=== PATIENT | male | born 1950 | race Caucasian/White ===

== ENCOUNTER 2019-07-18 12:35 | Inpatient (IN) | payer MEDICARE, MEDICAID ==
[~2019-07-18] VITALS: Ht 167.6 cm; Wt 91.7 kg
[~2019-07-18 12:35] MED LIST: AMIO200T33 PO; ASPI-231 PO; CARV12.544 PO; INSLANTI SC; INSU70IN9 SC; LISI10TA6 PO; LOVA20TA4 PO
[2019-07-18] MEDS ORDERED: SODIUM CHLORIDE 0.9% 500 ML IV ONE (12:51)
[2019-07-18] MEDS ORDERED: MORPHINE SULFATE 4 MG/ML SYR/VIAL IV ONE (13:00)
[2019-07-18] MEDS ORDERED: ONDANSETRON HCL 4 MG/2 ML VIAL IV ONE (13:00)
[2019-07-18 13:47] LABS: Basophils # (auto) 0 10 ^3/uL (0-0.2); Basophils % (auto) 0.9 % (0.0-2.0); Eosinophils # (auto) 0.1 10 ^3/uL (0-0.8); Eosinophils % (auto) 1.6 % (0.0-7.0); Hematocrit 35.6 % (41.0-53.0); Hemoglobin 11.8 g/dL (13.5-17.5); Lymphocytes % (auto) 19.8 % (10.0-50.0); Mean Corpuscular Hemoglobin 31.7 pg (28.0-32.0); Monocytes # (auto) 0.4 10 ^3/uL (0-1.3); Monocytes % (auto) 7.1 % (0.0-12.0); Neutrophils # (auto) 3.7 10 ^3/uL (1.6-8.6); Neutrophils % (auto) 70.6 % (37.0-80.0); Platelet Count (auto) 215 10^3/uL (140-450); Red Blood Cells 3.71 10^6/uL (4.5-5.90); Red Cell Distribution Width 13.9 % (11.8-14.3); White Blood Cell 5.2 10^3/uL (4.4-10.8)
[2019-07-18 13:59] LABS: INR 1.06 (0.9-1.15); Partial Thromboplastin Time 29.9 sec (23.64-32.05)
[2019-07-18 14:01] LABS: Albumin 3.5 g/dL (3.4-5.0); Calcium 8.6 mg/dL (8.5-10.1)
[2019-07-18 14:04] LABS: BUN/Creatinine Ratio 13.8
[2019-07-18 14:06] LABS: Bilirubin, Total 0.4 mg/dL (0.2-1.0); Total Protein 7.3 g/dL (6.4-8.2)
[2019-07-18] MEDS ORDERED: NITROGLYCERIN 0.4 MG SL TAB SL PRN (16:45)
[2019-07-18] MEDS ORDERED: MORPHINE SULF INJ 2 MG/ML SYRINGE 1ML IV PRN (16:45)
[2019-07-18] MEDS ORDERED: DEXTROSE (50%) 50ML SYRG IV PRN (16:45)
[2019-07-18] MEDS: ACCU-CHEK COMFORT CURVE STRIP VI SCH ×2 (17:22→21:22)
[2019-07-18] MEDS: InsuLIN REG 1unit/0.01ml Soln (100units/ml) SC SCH ×2 (17:25→21:24)
[2019-07-18] MEDS: SODIUM CHLORIDE 0.9% 1,000 ML IV SCH (17:27)
--- NOTE | 2019-07-18 20:05 | NUR ---
arrival note arrival via wheelchair. pt A&Ox4. respirations even and nonlabored on 2Lnc.
[2019-07-18 20:06] VITALS: BP 116/72
[2019-07-18] MEDS: CLINDAMYCIN 300MG IV 50 ML IV SCH (21:19)
[2019-07-18] MEDS: AMIODARONE HCL 200 MG TAB PO SCH (21:20)
[2019-07-18] MEDS: CARVEDILOL 12.5 MG TAB PO SCH (21:21)
[2019-07-18] MEDS: INSULIN LANTUS (GLARGINE) 1 /0.01ml (100units/ml) SC SCH (21:23)
[2019-07-18 22:00] VITALS: BP 116/72
--- NOTE | 2019-07-18 22:10 | NUR ---
pain c/o pain at left foot 10/18. medication will be administered.
[2019-07-18] MEDS: MORPHINE SULF INJ 2 MG/ML SYRINGE 1ML IV PRN (22:15)
--- NOTE | 2019-07-18 22:45 | NUR ---
hospitalist Spoke with hospitalyoel Batista regarding pt request for medication for constipation, as well as a sleep aid. New telephone orders received: Colace 100mg po BID PRN, Restoril 15mg po hs PRN orders read back and verified
[2019-07-18] MEDS ORDERED: DOCUSATE SOD 100 MG CAP PO PRN (23:15)
[2019-07-19] MEDS: SODIUM CHLORIDE 0.9% 1,000 ML IV SCH ×3 (03:07→14:00)
--- NOTE | 2019-07-19 03:30 | NUR ---
pain c/o pain at left foot 10/18. medication will be administered.
[2019-07-19] MEDS: MORPHINE SULF INJ 2 MG/ML SYRINGE 1ML IV PRN ×2 (03:34→11:26)
[2019-07-19 05:18] VITALS: BP 136/76
[2019-07-19] MEDS: InsuLIN REG 1unit/0.01ml Soln (100units/ml) SC SCH ×4 (06:31→21:41)
[2019-07-19] MEDS: ACCU-CHEK COMFORT CURVE STRIP VI SCH ×4 (06:31→21:49)
[2019-07-19] MEDS: CLINDAMYCIN 300MG IV 50 ML IV SCH ×3 (06:32→21:39)
--- NOTE | 2019-07-19 07:20 | NUR ---
closing note pt resting in semi fowlers position with eyes closed. no s/s of pain or distress at this time. respirations are even and nonlabored on 2Lnc. bed in low locked positon, call light within reach.
--- NOTE | 2019-07-19 07:40 | NUR ---
Opening Shift Note Assumed care of patient, awake and alert. No S/S of distress/SOB or pain. Instructed on POC and to call for assist PRN, will continue to monitor for changes Q1hr and PRN. Bed locked in lowest position with two side rails up and call light in reach.
[2019-07-19 08:00] VITALS: BP 132/74
[2019-07-19] MEDS: CARVEDILOL 12.5 MG TAB PO SCH ×2 (08:29→17:48)
[2019-07-19] MEDS: cefTRIAXone 1GM/50ML D5W 50 ML IV SCH (08:29)
[2019-07-19 08:40] VITALS: BP 132/74
[2019-07-19] MEDS: AMIODARONE HCL 200 MG TAB PO SCH ×2 (09:53→21:39)
--- NOTE | 2019-07-19 11:30 | NUR ---
WOUND CARE NOTE: IN TO SEE PATIENT AT THIS TIME PER WOUND CARE CONSULT REQUEST. [facility] OF LEFT FOOT PAIN, DFU. PATIENT HAS CURRENT TRINIDAD SCORE OF 19. WOUND PHOTO TAKEN AT TIME OF ADMIT, BY BEDSIDE NURSE. PATIENT STATES THAT HE WAS SENT TO THE ER BY [employer] PROFESSOR, DR. EVERETT. DR. EVERETT HAS ORDERED FOR MRI TO THE FOOT. HE IS NOTED TO HAVE A 2 X 2.5 CM BLACK ESCHAR DFU TO LEFT # 1 TOE. NO OPEN OR DRAINING AREAS NOTED. WOUND BED IS COVERED WITH 100 PERCENT BLACK ESCHAR. IRRIGATED WOUND WITH BETADINE. COVERED WITH TELFA, WRAPPED FOOT WITH KERLIX. ELEVATED FOOT UP ONTO PILLOWS FOR EDEMA CONTROL. RECOMMEND: EOD/PRN DRESSING CHANGE TO LEFT FOOT WOUND, DIETARY CONSULT, ELEVATION OF LEFT FOOT FOR EDEMA CONTROL, SKIN/WOUND CARE PLAN, CONTINUED MONITORING BY WOUND CARE TEAM. Addendum: 07/19/19 at 1758 by Maria Esther Ribeiro RN Amended: Links added.
[2019-07-19 12:40] VITALS: BP 110/61
[2019-07-19 17:00] VITALS: BP 143/84
--- NOTE | 2019-07-19 20:00 | NUR ---
Opening Shift Note Assumed care of patient, awake and alert. No S/S of distress/SOB or pain. Instructed on POC and to call for assist PRN, will continue to monitor for changes Q1hr and PRN. Patient's dressing undone at this time. Dressing reapplied. Patient states it comes off when using the urinal. will continue to monitor.
[2019-07-19] MEDS: INSULIN LANTUS (GLARGINE) 1 /0.01ml (100units/ml) SC SCH (21:42)
[2019-07-19 22:00] VITALS: BP 117/65
[2019-07-20] VITALS (7 sets, daily range): BP systolic 106–152; BP diastolic 44–76
[2019-07-20] MEDS: SODIUM CHLORIDE 0.9% 1,000 ML IV SCH ×2 (05:54→23:20)
[2019-07-20] MEDS: CLINDAMYCIN 300MG IV 50 ML IV SCH ×3 (05:54→21:35)
[2019-07-20] MEDS: MORPHINE SULF INJ 2 MG/ML SYRINGE 1ML IV PRN (05:54)
--- NOTE | 2019-07-20 06:00 | NUR ---
DRESSING UNDONE. DRESSING REAPPLIED TO FOOT. EDUCATED PATIENT ON NECESSITY OF BEING CAREFUL WITH DRESSING. PATIENT VERBALIZED UNDERSTANDING. WILL CONTINUE TO MONITOR.
[2019-07-20 06:05] LABS: Basophils # (auto) 0 10 ^3/uL (0-0.2); Eosinophils # (auto) 0.2 10 ^3/uL (0-0.8); Eosinophils % (auto) 4.1 % (0.0-7.0); Hematocrit 34.5 % (41.0-53.0); Hemoglobin 11.4 g/dL (13.5-17.5); Lymphocytes % (auto) 20.4 % (10.0-50.0); Mean Corpuscular Hemoglobin 31.3 pg (28.0-32.0); Mean Corpuscular Hgb Conc. 32.9 g/dL (32.0-36.0); Mean Corpuscular Volume 95.1 fL (80.0-100.0); Monocytes # (auto) 0.4 10 ^3/uL (0-1.3); Monocytes % (auto) 8.7 % (0.0-12.0); Neutrophils # (auto) 3.3 10 ^3/uL (1.6-8.6); Neutrophils % (auto) 65.8 % (37.0-80.0); Nucleated Red Blood Cells % 0.1 %; Platelet Count (auto) 184 10^3/uL (140-450); Red Blood Cells 3.63 10^6/uL (4.5-5.90); Red Cell Distribution Width 14.1 % (11.8-14.3); White Blood Cell 4.9 10^3/uL (4.4-10.8)
[2019-07-20 06:16] LABS: Calcium 8.5 mg/dL (8.5-10.1); Potassium 4.8 mmol/L (3.5-5.1)
[2019-07-20] MEDS: ACCU-CHEK COMFORT CURVE STRIP VI SCH ×4 (06:30→21:44)
[2019-07-20] MEDS: InsuLIN REG 1unit/0.01ml Soln (100units/ml) SC SCH ×4 (06:30→21:43)
[2019-07-20] MEDS: cefTRIAXone 1GM/50ML D5W 50 ML IV SCH (09:29)
[2019-07-20] MEDS: AMIODARONE HCL 200 MG TAB PO SCH ×2 (09:30→21:35)
[2019-07-20] MEDS: CARVEDILOL 12.5 MG TAB PO SCH ×2 (09:32→18:00)
--- NOTE | 2019-07-20 13:03 | NUR ---
DR. EVERETT AT BEDSIDE TO DISCUSS PLAN OF CARE FOR PATIENT, ORDER RECEIVED, WILL DOCUMENT AND CARRY OUT
[2019-07-20] MEDS ORDERED: ADENOSINE 74 MG in GIVE UN-DILUTED 0 ML IV STA (15:22)
--- NOTE | 2019-07-20 15:27 | NUR ---
PICC line placement Patient educated on need for PICC line placement. All risks and benefits explained and all questions and concerns addressed prior to procedure. Noted past medical history and allergies with no contraindications. INR and Plt counts within acceptable range. 4 fr PICC line inserted via right basilic vein using [employer] US and Tip Location System. Sterile technique with maximum barrier precautions utilized. Blood return obtained from lumen and flushed easily with NS using proper technique. PICC secured with Stat-lock; biodisc and occlusive dressing applied. Stat portable chest x-ray obtained for PICC tip placement. *Baseline Arm Circumference 30 cm. Internal length 43 cm. External length. PICC lot # [id number]
[2019-07-20] MEDS ORDERED: LIDOCAINE 1% (LOCAL ANESTH.) PF 5ml SDV ID ONE (15:30)
--- NOTE | 2019-07-20 16:00 | NUR ---
Okay to use PICC line Xray completed. Okay to use PICC line. Primary RN notified.
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
[2019-07-20] MEDS: SODIUM CHLOR 0.9% PF (SALINE LOCK) 10ML VIAL/SYR IV SCH (21:43)
[2019-07-20] MEDS: INSULIN LANTUS (GLARGINE) 1 /0.01ml (100units/ml) SC SCH (21:44)
--- NOTE | 2019-07-20 21:45 | NUR ---
DRESSING CHANGED Wound has been clean per wound care order and new dressing has been placed. Patient tolerated dressing change well.
--- NOTE | 2019-07-21 01:35 | NUR ---
PAIN LEVEL ASSESSMENT The patient states that he is experiencing 7/10 left foot pain and requested pain medication. Will treat with PRN morphine and will reassess the patient's pain.
[2019-07-21] MEDS: MORPHINE SULF INJ 2 MG/ML SYRINGE 1ML IV PRN ×2 (01:40→20:10)
--- NOTE | 2019-07-21 02:45 | NUR ---
PAIN REASSESSMENT The patient's pain has improved to 0/10. The patient is resting comfortably in bed.
[2019-07-21 05:00] VITALS: BP 121/64
[2019-07-21] MEDS: CLINDAMYCIN 300MG IV 50 ML IV SCH ×3 (06:26→22:00)
--- NOTE | 2019-07-21 06:45 | NUR ---
PICC LINE REMOVED The patient pulled out approximately 80% of his RUE PICC LINE. The patient stated that he felt uncomfortable due the to having "too much dressing covering the PICC line". RN removed the rest of the PICC line and placed a bandage over the site. Patient tolerated it well. Charge Nurse Bennett has been notified. Will endorse to day shift.
--- NOTE | 2019-07-21 06:55 | NUR ---
IV insertion IV access obtained, via clean sterile technique by inserting 22 gauge catheter at left hand after 1 attempt(s). IV secured properly. No trauma to site. Patient tolerated well.
[2019-07-21 08:00] VITALS: BP 142/81
[2019-07-21 09:00] VITALS: BP 142/81
[2019-07-21] MEDS: SODIUM CHLOR 0.9% PF (SALINE LOCK) 10ML VIAL/SYR IV SCH ×2 (09:15→22:00)
[2019-07-21] MEDS: CARVEDILOL 12.5 MG TAB PO SCH ×2 (09:15→18:43)
[2019-07-21] MEDS: cefTRIAXone 1GM/50ML D5W 50 ML IV SCH (09:15)
[2019-07-21] MEDS: AMIODARONE HCL 200 MG TAB PO SCH ×2 (09:15→22:00)
[2019-07-21 10:07] LABS: Calcium 8.8 mg/dL (8.5-10.1); Potassium 4.7 mmol/L (3.5-5.1)
[2019-07-21 10:09] LABS: BUN/Creatinine Ratio 14.9
[2019-07-21] MEDS: SODIUM CHLORIDE 0.9% 1,000 ML IV SCH (11:53)
[2019-07-21] MEDS: ACCU-CHEK COMFORT CURVE STRIP VI SCH ×4 (11:58→22:00)
[2019-07-21] MEDS: InsuLIN REG 1unit/0.01ml Soln (100units/ml) SC SCH ×4 (12:00→22:00)
[2019-07-21 13:00] VITALS: BP 145/85
--- NOTE | 2019-07-21 14:20 | NUR ---
Patient pulled out his IV to the left hand. Started IV 20g to the right upper arm.
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
--- NOTE | 2019-07-21 16:27 | NUR ---
Assessment Patient is a 68-year-old male who is alert and oriented. Prior to admission patient lived home with family and functioned independently. Per patient he does not have any DME now.Advised patient there is a social service consult for SNF placement for IV abx for 4 weeks. Patient requested [facility]. Informed patient clinical information will be faxed to facility. Informed patient he has the right to participate in all discharge planning. Patient verbalized understanding and agreed to discharge plan. Per Roberta with [facility] they do not have male available at this time. Informed patient. Per Patient he would like to go to [facility] [phone]. Informed patient clinical information will be faxed to [facility]. Per Sharmila with [facility] patient has been accepted and they would assign room once they receive COVID test results and IV abx. Informed NEVIN Wallace. Addendum: 07/21/19 at 1641 by ALEXA PIZARRO Amended: Links added.
[2019-07-21 16:34] VITALS: BP 149/89
--- NOTE | 2019-07-21 17:39 | NUR ---
Dressing changed to left great toe per doctor orders.
--- NOTE | 2019-07-21 19:35 | NUR ---
Opening Shift Note Assumed care of patient, awake and alert. No S/S of distress/SOB or pain. Bed is locked in lowest position with call light within reach. Instructed on POC and to call for assist PRN, will continue to monitor for changes Q1hr and PRN.
[2019-07-21 22:00] VITALS: BP 130/64
[2019-07-21] MEDS: INSULIN LANTUS (GLARGINE) 1 /0.01ml (100units/ml) SC SCH (22:00)
[2019-07-21] MEDS: ACETYLCYSTEINE ORAL for CIN 20%(200MG/ML) 4ML PO SCH (22:00)
[2019-07-22] MEDS: SODIUM CHLORIDE 0.9% 1,000 ML IV SCH ×2 (01:38→15:49)
[2019-07-22] MEDS: MORPHINE SULF INJ 2 MG/ML SYRINGE 1ML IV PRN (02:18)
[2019-07-22 05:00] VITALS: BP 135/71
[2019-07-22] MEDS: CLINDAMYCIN 300MG IV 50 ML IV SCH ×3 (06:00→22:34)
[2019-07-22] MEDS: ACCU-CHEK COMFORT CURVE STRIP VI SCH ×4 (07:00→22:00)
[2019-07-22] MEDS: InsuLIN REG 1unit/0.01ml Soln (100units/ml) SC SCH ×4 (07:00→23:19)
--- NOTE | 2019-07-22 07:30 | NUR ---
Opening Shift Note Assuming care of patient at this time. Patient is awake and alert. Patient denies pain. Patient shows no signs or symptoms of distress or shortness of breath. Bed is locked and lowered with side rails up x2. Instructed patient on the plan of care for today and to call for assistance as needed. Call light within reach. Will continue to round hourly and as needed.
[2019-07-22] MEDS: CARVEDILOL 12.5 MG TAB PO SCH ×2 (08:35→18:00)
[2019-07-22] MEDS: AMIODARONE HCL 200 MG TAB PO SCH ×2 (08:36→22:00)
[2019-07-22] MEDS: cefTRIAXone 1GM/50ML D5W 50 ML IV SCH (08:36)
[2019-07-22 09:02] VITALS: BP 130/58
[2019-07-22] MEDS: SODIUM CHLOR 0.9% PF (SALINE LOCK) 10ML VIAL/SYR IV SCH ×2 (10:00→22:10)
[2019-07-22] MEDS: ACETYLCYSTEINE ORAL for CIN 20%(200MG/ML) 4ML PO SCH ×2 (11:14→22:34)
[2019-07-22] MEDS: ACETAMINOPHEN 500 MG TAB PO PRN (11:22)
[2019-07-22 12:38] VITALS: BP 148/73
--- NOTE | 2019-07-22 14:53 | NUR ---
Nutrition Assessment Note please see attached link for complete assessment [employer] needs ABW [id number] kcals (23-25 kcal/kgBW), Est Protein needs: 77-92 gms/day (1.0-1.2 gm/kgBW r/t wounds). Will continue to monitor and reassess prn. Addendum: 07/22/19 at [address] Amended: Links added.
[2019-07-22 16:59] VITALS: BP 120/54
--- NOTE | 2019-07-22 19:26 | NUR ---
Closing Shift Note Patient resting in bed. No distress noted. Report given. Will endorse care to the mushroom growth media mixer RN.
[2019-07-22 22:00] VITALS: BP 133/66
--- NOTE | 2019-07-22 22:03 | NUR ---
HOSPITALIST PAGED PATIENT REQUESTING LAXATIVE.
--- NOTE | 2019-07-22 22:05 | NUR ---
HOSPITALIST RETURNS CALL SPOKE TO REGARDING PATIENT REQUEST FOR LAXATIVE. NEW ORDERS RECEIVED FOR LACTULOSE 30ML PO DAILY PRN. ORDERS READ BACK AND VERIFIED.
[2019-07-22] MEDS: TEMAZEPAM 15 MG CAP PO PRN (22:34)
--- NOTE | 2019-07-22 22:40 | NUR ---
PATIENT REFUSING LACTULOSE AT THIS TIME. PATIENT STATES HE WANTS TO TAKE IT IN THE MORNING.
[2019-07-22] MEDS: INSULIN LANTUS (GLARGINE) 1 /0.01ml (100units/ml) SC SCH (23:19)
--- NOTE | 2019-07-23 03:10 | NUR ---
CARE ENDORSED TO SIRENA ROONEY. PATIENT RESTING IN BED WITH NO S/S OF DISTRESS NOTED.
--- NOTE | 2019-07-23 03:15 | NUR ---
0310. RECEIVED PATIENT FROM BARNEY ROONEY.
[2019-07-23] MEDS: SODIUM CHLORIDE 0.9% 1,000 ML IV SCH (04:10)
[2019-07-23 05:00] VITALS: BP 141/73
[2019-07-23] MEDS: CLINDAMYCIN 300MG IV 50 ML IV SCH ×3 (06:09→21:55)
[2019-07-23 06:16] LABS: BUN/Creatinine Ratio 18.8; Calcium 8.6 mg/dL (8.5-10.1); Potassium 4.5 mmol/L (3.5-5.1)
[2019-07-23] MEDS: ACCU-CHEK COMFORT CURVE STRIP VI SCH ×4 (06:39→21:57)
[2019-07-23] MEDS: InsuLIN REG 1unit/0.01ml Soln (100units/ml) SC SCH ×4 (06:39→22:43)
[2019-07-23] MEDS: CARVEDILOL 12.5 MG TAB PO SCH ×2 (08:47→18:24)
[2019-07-23] MEDS: AMIODARONE HCL 200 MG TAB PO SCH ×2 (08:48→21:56)
[2019-07-23 09:00] VITALS: BP 134/80
[2019-07-23] MEDS: ACETYLCYSTEINE ORAL for CIN 20%(200MG/ML) 4ML PO SCH (09:01)
[2019-07-23] MEDS: LACTULOSE 20Gm/30ML SOLN PO PRN (09:01)
[2019-07-23] MEDS: SOD CHL 0.45% 1,000 ML IV SCH ×2 (09:03→21:55)
[2019-07-23] MEDS: cefTRIAXone 1GM/50ML D5W 50 ML IV SCH (09:04)
[2019-07-23] MEDS: SODIUM CHLOR 0.9% PF (SALINE LOCK) 10ML VIAL/SYR IV SCH ×2 (09:14→21:55)
--- NOTE | 2019-07-23 12:00 | NUR ---
IV removal by patient Patient's IV is laying on the bed at this time. When asked what happened, patient states, "I don't know." Pressure dressing applied to site. Will insert new IV.
--- NOTE | 2019-07-23 12:56 | NUR ---
Wound Care Wound care done at this time per doctor's orders. No distress noted. Patient tolerated well.
--- NOTE | 2019-07-23 12:57 | NUR ---
IV insertion IV access obtained, via clean sterile technique by inserting 22 gauge catheter at right hand. IV secured properly. No trauma to site. Patient tolerated well.
[2019-07-23 13:00] VITALS: BP 136/71
[2019-07-23 17:00] VITALS: BP 142/62
--- NOTE | 2019-07-23 19:19 | NUR ---
Closing Shift Note Patient resting in bed. No distress noted. Report given. Will endorse care to the rn shift mgr RN.
--- NOTE | 2019-07-23 19:30 | NUR ---
OPENING NOTE Received report from day shift RN. Patient is A&O X's 4 with no s/s of distress and denies any pain. Educated patient on POC and to use call light when in need of assistance. Patient verbalized understanding. Bed is in lowest/locked position with side rails up X's 2 and call light is within reach of patient. Patient will be NPO after midnight for possible procedure in the morning. Patient aware. Will continue care.
[2019-07-23] MEDS: TEMAZEPAM 15 MG CAP PO PRN (21:56)
[2019-07-23] MEDS: ACETAMINOPHEN 500 MG TAB PO PRN (21:56)
--- NOTE | 2019-07-23 21:56 | NUR ---
PAIN ASSESSMENT Patient c/o pain to left foot rating at a 7. Patient requesting Tylenol and said that he does not like the side effects of morphine. Will continue care.
[2019-07-23 22:00] VITALS: BP 135/69
[2019-07-23] MEDS: INSULIN LANTUS (GLARGINE) 1 /0.01ml (100units/ml) SC SCH (22:43)
--- NOTE | 2019-07-24 | NUR ---
PATIENT NPO Fluids and food removed from bedside. Will continue care.
[2019-07-24] MEDS: MORPHINE SULF INJ 2 MG/ML SYRINGE 1ML IV PRN (03:24)
--- NOTE | 2019-07-24 03:54 | NUR ---
PAIN REASSESSMENT Patient resting in bed with no s/s of discomfort. Will continue care.
[2019-07-24 05:00] VITALS: BP 119/63
[2019-07-24] MEDS: CLINDAMYCIN 300MG IV 50 ML IV SCH ×3 (06:19→21:44)
[2019-07-24] MEDS: InsuLIN REG 1unit/0.01ml Soln (100units/ml) SC SCH ×4 (06:19→21:51)
[2019-07-24] MEDS: ACCU-CHEK COMFORT CURVE STRIP VI SCH ×4 (06:19→21:45)
[2019-07-24 06:29] LABS: Basophils # (auto) 0.1 10 ^3/uL (0-0.2); Eosinophils # (auto) 0.2 10 ^3/uL (0-0.8); Eosinophils % (auto) 2.5 % (0.0-7.0); Lymphocytes # (auto) 1.2 10 ^3/uL (0.4-5.4); Lymphocytes % (auto) 19.1 % (10.0-50.0); Mean Corpuscular Hemoglobin 31.7 pg (28.0-32.0); Mean Corpuscular Hgb Conc. 33.3 g/dL (32.0-36.0); Mean Corpuscular Volume 95.3 fL (80.0-100.0); Monocytes # (auto) 0.8 10 ^3/uL (0-1.3); Monocytes % (auto) 12.4 % (0.0-12.0); Nucleated Red Blood Cells % 0.1 %; Platelet Count (auto) 180 10^3/uL (140-450); Red Blood Cells 3.78 10^6/uL (4.5-5.90); Red Cell Distribution Width 13.9 % (11.8-14.3); White Blood Cell 6.1 10^3/uL (4.4-10.8)
[2019-07-24 06:41] LABS: INR 1.05 (0.9-1.15); Partial Thromboplastin Time 32.6 sec (23.64-32.05)
[2019-07-24 06:53] LABS: Calcium 8.7 mg/dL (8.5-10.1); Potassium 4.3 mmol/L (3.5-5.1)
[2019-07-24 06:55] LABS: BUN/Creatinine Ratio 17.3
[2019-07-24 09:00] VITALS: BP 120/64
[2019-07-24] MEDS: cefTRIAXone 1GM/50ML D5W 50 ML IV SCH (10:47)
[2019-07-24] MEDS: SODIUM CHLOR 0.9% PF (SALINE LOCK) 10ML VIAL/SYR IV SCH ×3 (10:49→21:45)
[2019-07-24] MEDS: AMIODARONE HCL 200 MG TAB PO SCH ×2 (10:49→21:44)
[2019-07-24] MEDS: CARVEDILOL 12.5 MG TAB PO SCH ×2 (10:49→18:00)
--- NOTE | 2019-07-24 12:30 | NUR ---
Off unit Patient taken down to analytical laboratory technician for procedure.
[2019-07-24] MEDS: SOD CHL 0.45% 1,000 ML IV SCH (12:34)
[2019-07-24] MEDS ORDERED: ANGIOMAX 250 MG VIAL IV ONE (12:48)
[2019-07-24] MEDS ORDERED: LIDOCAINE 2%HCL (LOCAL ANESTH.) INJ 20ML MDV ONE (12:49)
[2019-07-24] MEDS ORDERED: MIDAZOLAM HCL 1MG/1ML-2 ML VIAL ONE (12:49)
[2019-07-24] MEDS ORDERED: fentaNYL CITRATE 100 MCG/2 ML VL ONE (12:49)
[2019-07-24] MEDS ORDERED: SODIUM CHL 0.9% 50 ML ONE (12:49)
[2019-07-24 13:00] VITALS: BP 117/67
[2019-07-24] MEDS ORDERED: ASPirin 325 MG TAB ONE (13:31)
--- NOTE | 2019-07-24 14:42 | NUR ---
Patient back on unit Patient back from procedure in cat lab. Patient is stable, no s/s of distress noted. Incision site is clean dry and intact. Vitals are B/p 111/55, HR 51, oxygen saturation is 94% on room air, temperature is 97.7, and respirations are 18 even and unlabored. I will continue to monitor q1hr and PRN.
[2019-07-24 14:50] VITALS: BP 111/55
[2019-07-24] MEDS ORDERED: LIDOCAINE 1% (LOCAL ANESTH.) PF 5ml SDV ID ONE (15:45)
--- NOTE | 2019-07-24 15:49 | NUR ---
PICC line replacement Patient educated on need for PICC line replacement. All risks and benefits explained and all questions and concerns addressed prior to procedure. Noted past medical history and allergies with no contraindications. INR and Plt counts within acceptable range. 4 fr PICC line inserted via right basilic vein using [employer]'s [employer] US and Tip Location System. Sterile technique with maximum barrier precautions utilized. Blood return obtained from lumen and flushed easily with NS using proper technique. PICC secured with Stat-lock; biodisc and occlusive dressing applied. Stat portable chest x-ray obtained for PICC tip placement. *Baseline Arm Circumference 30 cm. Internal length 43 cm. External length 0 cm. PICC lot #[id number]
--- NOTE | 2019-07-24 16:09 | NUR ---
Okay to use PICC line Xray completed and reviewed. Okay to use PICC line. Primary RN notified.
[2019-07-24 17:10] VITALS: BP 147/81
--- NOTE | 2019-07-24 19:39 | NUR ---
end of shift note endorsed care to NOC NEVIN gibson. No s/s of distress noted.
[2019-07-24] MEDS: TEMAZEPAM 15 MG CAP PO PRN (21:44)
[2019-07-24] MEDS: INSULIN LANTUS (GLARGINE) 1 /0.01ml (100units/ml) SC SCH (21:52)
--- NOTE | 2019-07-24 22:00 | NUR ---
PATIENT REMOVED IV Patient removed 22 G IV to right hand. Patient said it was bothering him and he did not need it anymore because he has the PICC line. Educated patient not to pull at any lines and the PICC line is necessary to keep in. Patient verbalized understanding and said he knows he needs the PICC line and wont touch it. gauze applied to right hand. catheter was fully intact. No trauma noted. Will continue care.
[2019-07-24 22:01] VITALS: BP 124/47
[2019-07-25] MEDS: MORPHINE SULF INJ 2 MG/ML SYRINGE 1ML IV PRN ×2 (02:10→22:30)
--- NOTE | 2019-07-25 02:40 | NUR ---
PAIN REASSESSMENT Patient resting in bed with no s/s of discomfort. Will continue care.
[2019-07-25 05:00] VITALS: BP 155/76
[2019-07-25] MEDS: CLINDAMYCIN 300MG IV 50 ML IV SCH ×3 (06:19→22:11)
[2019-07-25] MEDS: InsuLIN REG 1unit/0.01ml Soln (100units/ml) SC SCH ×4 (06:20→22:03)
[2019-07-25] MEDS: SOD CHL 0.45% 1,000 ML IV SCH ×2 (06:20→12:27)
[2019-07-25] MEDS: ACCU-CHEK COMFORT CURVE STRIP VI SCH ×4 (06:20→22:11)
[2019-07-25 06:43] LABS: BUN/Creatinine Ratio 19.2; Calcium 8.5 mg/dL (8.5-10.1); Potassium 4.8 mmol/L (3.5-5.1)
[2019-07-25 07:37] LABS: Urine Bacteria NONE SEEN /hpf (None Seen); Urine Blood Negative /uL (Negative); Urine Hyaline Cast FEW /lpf (0 - 2); Urine Specific Gravity 1.011 (1.001-1.035); Urine WBC <1 /hpf (0 - 3)
--- NOTE | 2019-07-25 07:45 | NUR ---
Opening shift note assumed care of patient from noc brian oh. Patient is AOX4 no s/s of distress noted. Bed is in lowest locked position, side rails up x2, and call light within reach. Updated patient on plan of care and patient verbalized understanding. I will continue to monitor q1hr and PRN.
[2019-07-25 09:05] VITALS: BP 150/70
[2019-07-25] MEDS: cefTRIAXone 1GM/50ML D5W 50 ML IV SCH (10:30)
[2019-07-25] MEDS: SODIUM CHLOR 0.9% PF (SALINE LOCK) 10ML VIAL/SYR IV SCH ×4 (10:31→22:11)
[2019-07-25] MEDS: AMIODARONE HCL 200 MG TAB PO SCH ×2 (10:32→22:07)
[2019-07-25] MEDS: CARVEDILOL 12.5 MG TAB PO SCH ×2 (10:32→18:59)
[2019-07-25] MEDS ORDERED: amLODIPine BESYLATE 5 MG TAB PO ONE (11:00)
--- NOTE | 2019-07-25 12:05 | NUR ---
physician rounding Dr. Garay at bedside. Updated him on patient statu, new orders received. Will follow through with MD orders.
[2019-07-25 12:51] VITALS: BP 135/78
[2019-07-25 17:16] VITALS: BP 137/68
--- NOTE | 2019-07-25 19:00 | NUR ---
Dressing change Dressing changed, patient tolerated procedure well. I will continue to monitor q1hr and PRN.
--- NOTE | 2019-07-25 19:36 | NUR ---
Closing shift note Endorsed care to NOC NEVIN Sanchez. No s/s of distress noted.
--- NOTE | 2019-07-25 19:52 | NUR ---
COVID SWAB Collected and walked down to lab
[2019-07-25 22:00] VITALS: BP 141/68
[2019-07-25] MEDS: INSULIN LANTUS (GLARGINE) 1 /0.01ml (100units/ml) SC SCH (22:04)
[2019-07-25] MEDS: TEMAZEPAM 15 MG CAP PO PRN (22:07)
--- NOTE | 2019-07-25 23:00 | NUR ---
PAIN REASSESSMENT Patient resting in bed. NO s/s of distress or discomfort is seen. Will continue care.
--- NOTE | 2019-07-26 | NUR ---
PATIENT NPO Patient aware. fluids and food removed from bedside.
--- NOTE | 2019-07-26 04:27 | NUR ---
PICC LINE REMOVED The patient pulled out all of the RUE PICC LINE. The patient stated that he "woke up and felt wet and couldn't find the PICC LINE." Patient reports that he thinks he accidently pulled it out because it was wrapped with his phone hotel maintenance technician. Gauze applied over site. No trauma noted. PICC Line was intact. sleeping bag filler notified.
--- NOTE | 2019-07-26 04:33 | NUR ---
IV insertion IV access obtained, via clean sterile technique by inserting 22 gauge catheter at right forearm after 1 attempt. IV secured properly. No trauma to site. Patient tolerated well. Signed: 07/26/19 at 0435 by KEMI MAO <Co-Signature Required> Co-Signed: 07/26/19 at 0435 by JULIA RIZZO RN RN
[2019-07-26 05:00] VITALS: BP 150/69
[2019-07-26] MEDS: MORPHINE SULF INJ 2 MG/ML SYRINGE 1ML IV PRN (05:01)
[2019-07-26] MEDS: CLINDAMYCIN 300MG IV 50 ML IV SCH ×3 (06:03→22:12)
[2019-07-26] MEDS: SOD CHL 0.45% 1,000 ML IV SCH (06:03)
[2019-07-26] MEDS: InsuLIN REG 1unit/0.01ml Soln (100units/ml) SC SCH ×4 (06:03→22:40)
[2019-07-26] MEDS: ACCU-CHEK COMFORT CURVE STRIP VI SCH ×4 (06:04→22:13)
--- NOTE | 2019-07-26 06:58 | NUR ---
PATIENT LEFT UNIT TO PRE OP PATIENT A&O X'S 4 WITH NO S/S OF DISTRESS AT THIS TIME.
[2019-07-26] MEDS ORDERED: ROPIVACAINE 0.5% (5MG/ML) 20ML AMPULE IJ ONE (07:01)
[2019-07-26] MEDS ORDERED: ceFAZolin 1GM VL ONE (07:01)
[2019-07-26] MEDS ORDERED: ceFAZolin 1GM/50ML 50 ML IV ONE (07:02)
--- NOTE | 2019-07-26 07:30 | NUR ---
Opening shift note Assumed care of patient from NINA Sanchez. Patient is currently off unit for a procedure.
[2019-07-26] MEDS ORDERED: SUCCINYLCHOLINE CHLORIDE 20 MG/ML 10ML VIAL IV ONE (07:32)
[2019-07-26] MEDS ORDERED: fentaNYL CITRATE 100 MCG/2 ML VL ONE (07:35)
[2019-07-26] MEDS ORDERED: MIDAZOLAM HCL 1MG/1ML-2 ML VIAL ONE (07:35)
[2019-07-26] MEDS ORDERED: PROPOFOL 10 MG/ML 20 ML IV ONE (07:36)
[2019-07-26] MEDS: CARVEDILOL 12.5 MG TAB PO SCH ×2 (08:00→16:58)
[2019-07-26] MEDS ORDERED: fentaNYL CITRATE 100 MCG/2 ML VL IV PRN (08:15)
[2019-07-26] MEDS ORDERED: hydrALAZINE HCL 20 MG/ML VL IV PRN (08:15)
[2019-07-26] MEDS ORDERED: ePHEDrine SULFATE 50 MG/ML AMP IV PRN (08:15)
[2019-07-26] MEDS ORDERED: ONDANSETRON HCL 4 MG/2 ML VIAL IV PRN (08:15)
--- NOTE | 2019-07-26 08:36 | NUR ---
PACU Report received. Received report from Sarah ROONEY.
[2019-07-26 08:45] VITALS: BP 142/75
--- NOTE | 2019-07-26 08:45 | NUR ---
Patient back on unit Patient brought back from procedure, patient is stable. Vitals upon arrival are 142/75, 62bpm, 95% on room air, 18 respiration rate, and temperature is 97.4. No signs and symptoms of distress noted, dressing is clean dry and intact. Educated patient to call for assistance when needed, educated patient on wound and dressing, patient verbalized understanding. Will continue to monitor q1hr and PRN.
[2019-07-26] MEDS: cefTRIAXone 1GM/50ML D5W 50 ML IV SCH (09:58)
[2019-07-26] MEDS: amLODIPine BESYLATE 5 MG TAB PO SCH (09:59)
[2019-07-26] MEDS: AMIODARONE HCL 200 MG TAB PO SCH ×2 (09:59→22:11)
[2019-07-26] MEDS: SODIUM CHLOR 0.9% PF (SALINE LOCK) 10ML VIAL/SYR IV SCH ×4 (09:59→22:00)
--- NOTE | 2019-07-26 11:43 | NUR ---
WOUND CARE NOTE: Wound care on to see patient for reevaluation of wound that are noted present on admission. Patient is resting in bed in Rm. 296B. Patient's eyes are closed and he's facing Rt side, respirations even and unlabored. Patient undergone amputation of L great toe this morning by Dr. Garay. His L foot has C/D/I post op dressing. No pressure injury noted. No further wound care monitoring as this is surgical wound, follow surgeon's dressing change order. RECOMMENDATION: Follow surgeon's dressing change order, continue with skin/wound plan of care. Addendum: 07/26/19 at 1613 by Erin Jha RN Amended: Links added.
[2019-07-26 13:00] VITALS: BP 134/68
--- NOTE | 2019-07-26 15:51 | NUR ---
Nutrition Followup Note Pt wt is 89.5 kg Pt was sleeping when rounded this morning. Pt is currently NPO status was cancelled, pt resumed [id number] diet today. Pt appetite is good aeb 100% PO intake. Pt with no distress Per RN doc. Will continue to closely monitor pertinent labs, PO intake and skin status prn. Will followup in 3-5 days Est Energy needs ABW [id number] kcals (23-25 kcal/kgBW), Est Protein needs: 77-92 gms/day (1.0-1.2 gm/kgBW r/t wounds). Will continue to monitor and reassess prn. LABS: BUN 32 H, CR 1.67 H, GFR 44 L A1c 6.7 H GI: Pt last BM noted: 2 on 07/23 per RN doc. BS: 19 low risk Please refer to wound assessment report for full details. PES: Problem Altered nutrition related lab values r/t current chronic medical condition aeb elev RFT a1c, hyperglycemia Problem Decreased nutrient needs r/t adiposity aeb pt`s high BMI of 32.1 kgm2 Comments 1) consider MVI/C bid 2) refer to CDE on DC 3) continue current plan of care
[2019-07-26 17:00] VITALS: BP 144/68
--- NOTE | 2019-07-26 19:15 | NUR ---
End of shift note Endorsed care to NOC NEVIN Elaine. No s/s of distress noted.
--- NOTE | 2019-07-26 19:40 | NUR ---
Opening Shift Note Received report and assumed care of patient. Patient is awake and alert. No signs or symptoms of distress noted. Instructed patient on plan of care and to call for assistance as needed. Will continue to monitor.
[2019-07-26 22:00] VITALS: BP 127/64
[2019-07-26] MEDS: INSULIN LANTUS (GLARGINE) 1 /0.01ml (100units/ml) SC SCH (22:40)
[2019-07-27] MEDS: MORPHINE SULF INJ 2 MG/ML SYRINGE 1ML IV PRN ×4 (00:55→15:35)
--- NOTE | 2019-07-27 00:55 | NUR ---
Pain Medication Administration Patient complaining of Left foot pain 08/17. Will administer pain medication per MD level. Will reassess pain level and will continue to monitor.
--- NOTE | 2019-07-27 01:25 | NUR ---
Pain Level Reassessment Patient asleep for pain level reassessment. No signs or symptoms of distress noted. Will continue to monitor.
[2019-07-27] MEDS: SOD CHL 0.45% 1,000 ML IV SCH (03:00)
[2019-07-27 05:00] VITALS: BP 137/70
--- NOTE | 2019-07-27 05:32 | NUR ---
Pain Medication Administration Patient complaining of Left foot pain 10/10. Will administer pain medication per MD level. Will reassess pain level and will continue to monitor.
[2019-07-27] MEDS: CLINDAMYCIN 300MG IV 50 ML IV SCH (06:02)
--- NOTE | 2019-07-27 06:02 | NUR ---
Pain Level Reassessment Patient asleep for pain level reassessment. No signs or symptoms of distress noted. Will continue to monitor.
[2019-07-27] MEDS: ACCU-CHEK COMFORT CURVE STRIP VI SCH ×4 (06:40→22:04)
[2019-07-27] MEDS: InsuLIN REG 1unit/0.01ml Soln (100units/ml) SC SCH ×4 (06:43→22:08)
[2019-07-27 06:52] LABS: Potassium 4.5 mmol/L (3.5-5.1)
[2019-07-27 07:18] LABS: BUN/Creatinine Ratio 19.4; Calcium 8.7 mg/dL (8.5-10.1)
--- NOTE | 2019-07-27 07:30 | NUR ---
Opening Shift Note Assumed care of patient, awake and alert. No S/S of distress/SOB or pain. Bed in lowest locked position, call light within reach, side rails up x 2. Instructed on POC and to call for assist PRN, will continue to monitor for changes Q1hr and PRN.
[2019-07-27 09:00] VITALS: BP 132/74
[2019-07-27] MEDS: cefTRIAXone 1GM/50ML D5W 50 ML IV SCH (09:48)
[2019-07-27] MEDS: CARVEDILOL 12.5 MG TAB PO SCH ×2 (09:49→18:00)
[2019-07-27] MEDS: amLODIPine BESYLATE 5 MG TAB PO SCH (09:49)
[2019-07-27] MEDS: AMIODARONE HCL 200 MG TAB PO SCH ×2 (09:49→22:03)
[2019-07-27] MEDS: SODIUM CHLOR 0.9% PF (SALINE LOCK) 10ML VIAL/SYR IV SCH ×4 (09:50→22:00)
--- NOTE | 2019-07-27 11:45 | NUR ---
SPOKE TO DR. MERRITT. ACCORDING TO DR. MERRITT, DO NOT CHANGE THE DRESSING OF THE LEFT FOOT.
[2019-07-27] MEDS: HYDROcodone-ACET 5/325MG TAB PO PRN ×2 (12:17→22:04)
[2019-07-27] MEDS ORDERED: CEFTRIAXONE SODIUM 2 GM in D5W 5% 50 ML IV ONE (12:30)
[2019-07-27 13:00] VITALS: BP 133/78
--- NOTE | 2019-07-27 16:00 | NUR ---
POST-OP SHOE DELIVERED AND PLACED ON PATIENT.
[2019-07-27 16:59] VITALS: BP 127/60
--- NOTE | 2019-07-27 19:44 | NUR ---
Opening Shift Note Received report and assumed care of patient. Patient is asleep but awakens to voice. No signs or symptoms of distress noted. Instructed patient on plan of care and to call for assistance as needed. Will continue to monitor.
[2019-07-27 22:00] VITALS: BP 140/78
--- NOTE | 2019-07-27 22:04 | NUR ---
Pain Medication Administration Patient complaining of Left foot pain 5/10. Will administer pain medication per MD level. Will reassess pain level and will continue to monitor.
[2019-07-27] MEDS: INSULIN LANTUS (GLARGINE) 1 /0.01ml (100units/ml) SC SCH (22:08)
--- NOTE | 2019-07-27 23:04 | NUR ---
Pain Level Reassessment Patient asleep for pain level reassessment. No signs or symptoms of distress noted. Will continue to monitor.
[2019-07-28] MEDS: LACTULOSE 20Gm/30ML SOLN PO PRN (01:08)
[2019-07-28] MEDS: HYDROcodone-ACET 5/325MG TAB PO PRN ×3 (02:12→17:59)
--- NOTE | 2019-07-28 02:12 | NUR ---
Pain Medication Administration Patient complaining of Left foot pain 09/17. Patient requesting for [place] to be administered. Educated patient regarding pain level and pain medications. Patient verbalized understanding, continues to request Port[place]. Will administer pain medication per MD level. Will reassess pain level and will continue to monitor.
--- NOTE | 2019-07-28 03:12 | NUR ---
Pain Level Reassessment Patient asleep for pain level reassessment. No signs or symptoms of distress noted. Will continue to monitor.
[2019-07-28 05:00] VITALS: BP 135/76
[2019-07-28] MEDS: ACCU-CHEK COMFORT CURVE STRIP VI SCH ×3 (06:30→17:57)
[2019-07-28] MEDS: InsuLIN REG 1unit/0.01ml Soln (100units/ml) SC SCH ×3 (06:31→17:58)
[2019-07-28 08:56] VITALS: BP 137/59
[2019-07-28] MEDS: CARVEDILOL 12.5 MG TAB PO SCH ×2 (09:13→18:00)
[2019-07-28] MEDS: AMIODARONE HCL 200 MG TAB PO SCH (09:13)
[2019-07-28] MEDS: amLODIPine BESYLATE 5 MG TAB PO SCH (09:14)
[2019-07-28] MEDS: SODIUM CHLOR 0.9% PF (SALINE LOCK) 10ML VIAL/SYR IV SCH ×2 (09:14)
[2019-07-28] MEDS ORDERED: CEFTRIAXONE SODIUM 2 GM in D5W 5% 50 ML IV SCH (10:00)
--- NOTE | 2019-07-28 11:30 | NUR ---
Midline Placement: Patient educated on need for midline placement. All risks and benefits explained and all questions and concerns addresses prior to procedure. 18g/10cm midline inserted via right basilic vein using Ultrasound. Sterile technique utilized. Blood return obtained from lumen and flushed easily with NS using proper technique. Midline secured with saline lock; biodisc and occlusive dressing applied. Primary RN notified.
[2019-07-28 12:56] VITALS: BP 119/56
--- NOTE | 2019-07-28 15:00 | NUR ---
SPOKE TO ALEXA WITH SS. ACCORDING TO ALEXA [employer] ETA IS [phone]. PATIENT IS GOING TO [facility] ROOM [address] IS DR. DÍAZ.
[2019-07-28 16:43] VITALS: BP 119/56
--- NOTE | 2019-07-28 16:50 | NUR ---
REPORT GIVEN TO HOMERO PENA AT [facility].
[2019-07-28 17:00] VITALS: BP 125/56
--- NOTE | 2019-07-28 17:00 | NUR ---
PER PATIENT, HE WILL NOTIFY HIS FAMILY OF THE TRANSFER.
--- NOTE | 2019-07-28 17:15 | NUR ---
D/C Planning Per Sharmila with [facility] they will need authorization from secondary insurance [facility] before providing room number. Faxed clinical information to [facility] requesting authorization for [facility]. Obtain authorization from [facility] SN[facility] [id number] and transportation [id number]. Placed a follow up call to Sharmila to provide her with authorization. Per Sharmila with [facility] [phone] patient can go to room 210 bed 1 accepting , Dr. Webster. Transportation has been arranged with [employer] [phone] between 17:00-20:00 via [employer]. Informed NEVIN Ricci.
--- NOTE | 2019-07-28 18:00 | NUR ---
Discharge instructions given as ordered. Encourage to follow up with PMD as instructed. All questions and concerns addressed. Patient verbalized understanding. Medication reconciliation form completed and copy given to patient. No Home medications held in Pharmacy. Pt refused vaccines. Left FA IV removed with catheter intact, pressure dressing applied. Mid line in place and patient to be discharged with midline.
--- NOTE | 2019-07-28 18:38 | NUR ---
TRANSFER TO SNF PATIENT DISCHARGED WITH ALL PERSONAL BELONGINGS. PATIENT ACCOMPANIED BY TRANSPORT PERSONNEL VIA GORNEY. NO S/S OF DISTRESS OR SOB AT THIS TIME.
== END 2019-07-28 18:32 | DRG 314 ==
LOC: ER 12:35 → TELE 12:36 → TELE-WESTW 20:36
PROVIDERS: ADMIT Nurse Practitioner Acute Care; ATTEND Internal Medicine
PROC: 02HV33Z Insertion of Infusion Device into Superior Vena Cava, Percutaneous Approach (ICD-10-PCS; 2019-07-20)
PROC: 047Q3ZZ Dilation of Left Anterior Tibial Artery, Percutaneous Approach (ICD-10-PCS; 2019-07-24)
PROC: B41GYZZ Fluoroscopy of Left Lower Extremity Arteries using Other Contrast (ICD-10-PCS; 2019-07-24)
PROC: B41FYZZ Fluoroscopy of Right Lower Extremity Arteries using Other Contrast (ICD-10-PCS; 2019-07-24)
PROC: 0Y6Q0Z3 Detachment at Left 1st Toe, Low, Open Approach (ICD-10-PCS; principal; 2019-07-26 07:30)
DX: E11.69 Type 2 diabetes mellitus with other specified complication (principal); N17.0 Acute kidney failure with tubular necrosis; E11.51 Type 2 diabetes mellitus with diabetic peripheral angiopathy without gangrene; E11.621 Type 2 diabetes mellitus with foot ulcer; L97.529 Non-pressure chronic ulcer of other part of left foot with unspecified severity; E11.21 Type 2 diabetes mellitus with diabetic nephropathy; E11.40 Type 2 diabetes mellitus with diabetic neuropathy, unspecified; E11.22 Type 2 diabetes mellitus with diabetic chronic kidney disease; N18.3 Chronic kidney disease, stage 3 (moderate); J44.9 Chronic obstructive pulmonary disease, unspecified; I50.9 Heart failure, unspecified; D64.9 Anemia, unspecified; I13.0 Hypertensive heart and chronic kidney disease with heart failure and stage 1 through stage 4 chronic kidney disease, or unspecified chronic kidney disease; I25.10 Atherosclerotic heart disease of native coronary artery without angina pectoris; E78.5 Hyperlipidemia, unspecified; L03.032 Cellulitis of left toe; E11.319 Type 2 diabetes mellitus with unspecified diabetic retinopathy without macular edema; M86.8X7 Other osteomyelitis, ankle and foot; G47.00 Insomnia, unspecified; M19.072 Primary osteoarthritis, left ankle and foot; Z95.1 Presence of aortocoronary bypass graft; Z86.73 Personal history of transient ischemic attack (TIA), and cerebral infarction without residual deficits; Z79.4 Long term (current) use of insulin; Z83.3 Family history of diabetes mellitus; Z87.891 Personal history of nicotine dependence; Z79.899 Other long term (current) drug therapy; Z90.49 Acquired absence of other specified parts of digestive tract; Z79.82 Long term (current) use of aspirin; Z82.49 Family history of ischemic heart disease and other diseases of the circulatory system; Z95.828 Presence of other vascular implants and grafts; Z11.59 Encounter for screening for other viral diseases
CPT/HCPCS: 36415; 36569; 71045; 73700; 73718; 80048; 80053; 81001; 82962; 83036; 83605; 85025; 85610; 85652; 85730; 86850; 86900; 86901; 87070; 87075; 87205; 93925; 99152; 99153; C1769; G0378; J0330; J0690; J0696; J1815; J2250; J2405; J2704; J3490; J7060

== ENCOUNTER 2019-10-10 11:19 | Inpatient (IN) | payer MEDICARE, MEDICAID ==
[~2019-10-10] VITALS: Ht 167.6 cm; Wt 93.7 kg
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
[~2019-10-10 11:19] MED LIST changes: +LISI-648 PO; -LISI10TA6 PO
[2019-10-10] MEDS ORDERED: CLINDAMYCIN 600MG IV 50 ML IV ONE (11:45)
[2019-10-10 12:22] LABS: Basophils # (auto) 0.1 10 ^3/uL (0-0.2); Eosinophils # (auto) 0.2 10 ^3/uL (0-0.8); Eosinophils % (auto) 3.1 % (0.0-7.0); Hematocrit 38.8 % (41.0-53.0); Hemoglobin 12.7 g/dL (13.5-17.5); Lymphocytes % (auto) 19.1 % (10.0-50.0); Mean Corpuscular Hemoglobin 30.2 pg (28.0-32.0); Mean Corpuscular Hgb Conc. 32.8 g/dL (32.0-36.0); Mean Corpuscular Volume 92.1 fL (80.0-100.0); Monocytes # (auto) 0.6 10 ^3/uL (0-1.3); Monocytes % (auto) 10.6 % (0.0-12.0); Neutrophils # (auto) 3.6 10 ^3/uL (1.6-8.6); Neutrophils % (auto) 66.2 % (37.0-80.0); Platelet Count (auto) 184 10^3/uL (140-450); Red Blood Cells 4.22 10^6/uL (4.5-5.90); Red Cell Distribution Width 13.9 % (11.8-14.3); White Blood Cell 5.4 10^3/uL (4.4-10.8)
[2019-10-10] MEDS ORDERED: SODIUM CHLORIDE 0.9% 1,000 ML IV SCH (12:23)
[2019-10-10] MEDS ORDERED: LORazepam 0.5 MG TAB PO PRN (12:30)
[2019-10-10] MEDS ORDERED: NITROGLYCERIN 0.4 MG SL TAB SL PRN (12:30)
[2019-10-10] MEDS ORDERED: ONDANSETRON HCL 4 MG/2 ML VIAL IV PRN (12:30)
[2019-10-10] MEDS ORDERED: PIPERACILLIN-TAZOB 3.375GM 100 ML IV ONE (12:30)
[2019-10-10] MEDS ORDERED: DEXTROSE (50%) 50ML SYRG IV PRN (12:30)
[2019-10-10] MEDS ORDERED: ACETAMINOPHEN 325 MG TAB PO PRN (12:30)
[2019-10-10] MEDS ORDERED: ALUM & MAG HYDROX-SIMETH LIQ(MAALOX) 30 ML PO PRN (12:30)
[2019-10-10] MEDS ORDERED: VANCOMYCIN PER PHARMACY 0 MG IV SCH (12:30)
[2019-10-10] MEDS ORDERED: MORPHINE SULF INJ 2 MG/ML SYRINGE 1ML IV PRN (12:30)
[2019-10-10] MEDS ORDERED: DOCUSATE SOD 100 MG CAP PO PRN (12:30)
[2019-10-10 12:36] LABS: INR 1.01 (0.9-1.15); Partial Thromboplastin Time 28.7 sec (23.0-31.2)
[2019-10-10 12:42] LABS: Albumin 3.6 g/dL (3.4-5.0)
[2019-10-10 12:47] LABS: BUN/Creatinine Ratio 19.1; Bilirubin, Total 0.6 mg/dL (0.2-1.0); Total Protein 7.1 g/dL (6.4-8.2)
[2019-10-10] MEDS ORDERED: PANTOPRAZOLE 40 MG/10 ML VIAL INJ IV ONE (13:00)
[2019-10-10] MEDS ORDERED: FUROSEMIDE 20 MG/2 ML VIAL IV ONE (13:00)
[2019-10-10] MEDS ORDERED: ATOR20TA50 PO (13:07)
[2019-10-10 13:11] LABS: Cholesterol 126 mg/dL (< 200); HDL Cholesterol 42 mg/dL (40-59); LDL Cholesterol 79 mg/dL (< 100); Triglycerides 95 mg/dL (< 150)
[2019-10-10] MEDS ORDERED: DOCU-94 PO (13:12)
[2019-10-10] MEDS ORDERED: AMLO5TAB15 PO (13:12)
[2019-10-10] MEDS ORDERED: FLEETMIN PR (13:12)
[2019-10-10] MEDS ORDERED: MAGN400S25 PO (13:12)
[2019-10-10] MEDS ORDERED: LACT10SO3 PO (13:12)
[2019-10-10] MEDS ORDERED: BISA10SU45 RE (13:12)
[2019-10-10] MEDS ORDERED: HYDR-4833 PO (13:17)
[2019-10-10] MEDS ORDERED: PRED1SUS4 OP (13:17)
[2019-10-10] MEDS ORDERED: NITR0.4S29 SL (13:17)
[2019-10-10] MEDS ORDERED: INSREG3 SC (13:17)
[2019-10-10] MEDS ORDERED: CHOL20007 PO (13:17)
[2019-10-10] MEDS ORDERED: ASCO500T11 PO (13:17)
[2019-10-10] MEDS ORDERED: ACET-1304 PO (13:17)
[2019-10-10] MEDS: SODIUM CHLORIDE 0.9% 1,000 ML IV SCH ×2 (13:19→23:00)
--- NOTE | 2019-10-10 14:30 | NUR ---
Telemetry admit from ER LULI ARAMBULA admitted to Telemetry unit after SBAR received. Patient oriented to Naomie moe RN, unit, room, bed, and unit policies regarding patient care and visiting hours. Patient now on continuous telemetry monitoring, tele box #[id number] and telemetry reading on arrival to unit is NSR. Patient weighed by bedscale and encouraged to call if they need something. All questions and concerns addressed, patient verbalized understanding.
[2019-10-10] MEDS ORDERED: VANCOMYCIN 1GM/250ML 250 ML IV ONE (16:00)
[2019-10-10] MEDS: InsuLIN REG 1unit/0.01ml Soln (100units/ml) SC SCH ×2 (17:00→22:00)
[2019-10-10] MEDS: ACCU-CHEK COMFORT CURVE STRIP VI SCH ×2 (17:18→22:00)
[2019-10-10] MEDS: PIPERACILLIN-TAZOB 2.25GM 50 ML IV SCH ×2 (18:10→23:55)
[2019-10-10] MEDS: FUROSEMIDE 20 MG/2 ML VIAL IV SCH (18:10)
--- NOTE | 2019-10-10 19:30 | NUR ---
Opening Shift Note Assumed care of patient, awake and alert. No S/S of distress/SOB or pain. Instructed on POC and to call for assist PRN, will continue to monitor for changes Q1hr and PRN. bed in low position and call light within reach. fall precautions in place. patient educated to call for assistance patient verbalized understanding
[2019-10-10 20:55] LABS: Urine Bacteria NONE SEEN /hpf (None Seen); Urine Blood Negative /uL (Negative); Urine Specific Gravity 1.006 (1.001-1.035); Urine WBC <1 /hpf (0 - 3)
[2019-10-10 21:07] LABS: Alcohol, Urine < 3.0 mg/dL (0-10); Amphetamine Screen, Urine NEGATIVE (NEGATIVE); Barbiturate Scree,Urine NEGATIVE (NEGATIVE); Benzodiazephine Screen, Urine NEGATIVE (NEGATIVE); Cannabinoid Screen, Urine NEGATIVE (NEGATIVE); Cocaine Screen, Urine NEGATIVE (NEGATIVE); Opiate Scree,Urine NEGATIVE (NEGATIVE); Phencyclidine Screen, Urine NEGATIVE (NEGATIVE)
[2019-10-10] MEDS: AMIODARONE HCL 200 MG TAB PO SCH (21:56)
[2019-10-10] MEDS: ATORVASTATIN 20 MG TAB PO SCH (21:57)
[2019-10-10] MEDS: CARVEDILOL 12.5 MG TAB PO SCH (21:57)
[2019-10-10] MEDS: HYDROcodone-ACET 5/325MG TAB PO PRN (21:57)
--- NOTE | 2019-10-10 21:57 | NUR ---
7/10 aching pain to left foot patient medicated for pain
[2019-10-10 22:00] VITALS: BP 118/66
--- NOTE | 2019-10-10 22:00 | NUR ---
PATIENT REFUSING INSULIN PER PATIENT " I DO NOT USE THE SLIDING SCALE,THAT WILL MAKE MY BS DROP" PATIENT EDUCATED ON BENEFITS AND RISKS OF MEDICATION PATIENT REFUSED.
--- NOTE | 2019-10-10 22:30 | NUR ---
PATIENT REMOVED TELEMONITOR PER PATIENT " I DO NOT WANT THAT" THE STICKERS ARE TO STICKY" GET THAT AWAY FROM ME I AM HERE FOR MY FOOT NOT HEART PROBLEMS!" PATIENT EDUCATED ON BENEFITS AND RISKS OF HAVING TELEMONITOR PATIENT VERBALIZED REFUSAL.
--- NOTE | 2019-10-10 22:57 | NUR ---
pain 0/10
--- NOTE | 2019-10-11 | NUR ---
patient aware to be npo for procedure
--- NOTE | 2019-10-11 | NUR ---
PATIENT CONTINUES TO HAVE TELEMONITOR OFF [facility]ILN PACKER AWARE. CALLED HOSPITALIST TO NOTIFY. AWAITING CALL BACK. REEDUCATED PATIENT. PER PATIENT " GET THAT AWAY FROM ME I AM HERE FOR MY FOOT NOT HEART PROBLEMS!" PATIENT EDUCATED ON BENEFITS AND RISKS OF HAVING TELEMONITOR PATIENT VERBALIZED REFUSAL.
[2019-10-11] MEDS: MORPHINE SULF INJ 2 MG/ML SYRINGE 1ML IV PRN ×2 (00:14→05:00)
--- NOTE | 2019-10-11 00:14 | NUR ---
pain 8/10 aching to left foot. patient medicated.
--- NOTE | 2019-10-11 00:44 | NUR ---
patient reports 3/10 pain
--- NOTE | 2019-10-11 00:57 | NUR ---
alon dhaliwal aware of patient refusing telemonitor. no new orders received. Addendum: 10/11/19 at 0409 by SHAWNEE LANDEROS RN RN telebox at bedside inside patient drawer
--- NOTE | 2019-10-11 04:58 | NUR ---
PATIENT LINEN CHANGE AND CHG WIPES DONE
[2019-10-11 05:00] VITALS: BP 100/58
--- NOTE | 2019-10-11 05:00 | NUR ---
8/10 PAIN PATIENT MEDICATED FOR PAIN
[2019-10-11] MEDS: FUROSEMIDE 20 MG/2 ML VIAL IV SCH ×2 (05:23→18:19)
[2019-10-11] MEDS: PIPERACILLIN-TAZOB 2.25GM 50 ML IV SCH ×3 (05:30→20:30)
[2019-10-11] MEDS: InsuLIN REG 1unit/0.01ml Soln (100units/ml) SC SCH ×4 (06:26→22:00)
[2019-10-11] MEDS: ACCU-CHEK COMFORT CURVE STRIP VI SCH ×4 (06:27→22:11)
[2019-10-11 06:29] LABS: Basophils # (auto) 0.1 10 ^3/uL (0-0.2); Basophils % (auto) 1.4 % (0.0-2.0); Eosinophils # (auto) 0.2 10 ^3/uL (0-0.8); Eosinophils % (auto) 4.4 % (0.0-7.0); Hematocrit 36.6 % (41.0-53.0); Hemoglobin 11.8 g/dL (13.5-17.5); Lymphocytes # (auto) 0.9 10 ^3/uL (0.4-5.4); Lymphocytes % (auto) 18.7 % (10.0-50.0); Mean Corpuscular Hgb Conc. 32.4 g/dL (32.0-36.0); Mean Corpuscular Volume 92.8 fL (80.0-100.0); Monocytes # (auto) 0.7 10 ^3/uL (0-1.3); Monocytes % (auto) 12.9 % (0.0-12.0); Neutrophils # (auto) 3.2 10 ^3/uL (1.6-8.6); Neutrophils % (auto) 62.6 % (37.0-80.0); Platelet Count (auto) 158 10^3/uL (140-450); Red Blood Cells 3.94 10^6/uL (4.5-5.90); White Blood Cell 5.1 10^3/uL (4.4-10.8)
[2019-10-11 06:55] LABS: Potassium 4.2 mmol/L (3.5-5.1)
[2019-10-11 07:06] LABS: BUN/Creatinine Ratio 19.3; Calcium 8.8 mg/dL (8.5-10.1)
--- NOTE | 2019-10-11 07:11 | NUR ---
REPORT GIVEN TO DAYSHIFT RN PATIENT DENIES SOB DISTRESS OR PAIN
--- NOTE | 2019-10-11 07:53 | NUR ---
OPENING SHIFT NOTE Assumed care of patient. PT is A&O x4. No S/S of distress. Fall and safety precautions in place. Call light within reach and able to use. PT awaiting surgical procedure. PT stated he is NPO and wants to eat if no procedure. PRE OP stated they do not have a schedule and in patient procedures will likely occur in the afternoon. PT is aware. Instructed on POC and to call for assist PRN, patient verbalized understanding and in agreement. Will continue to monitor for changes Q1hr and PRN.
[2019-10-11 09:00] VITALS: BP 116/59
[2019-10-11] MEDS: CARVEDILOL 12.5 MG TAB PO SCH ×2 (10:00→22:06)
[2019-10-11] MEDS: ASPirin 81 mg TAB PO SCH (11:27)
[2019-10-11] MEDS: SODIUM CHLORIDE 0.9% 1,000 ML IV SCH ×2 (11:27→18:17)
[2019-10-11] MEDS: LISINOPRIL 10 MG TAB PO SCH (11:28)
[2019-10-11] MEDS: AMIODARONE HCL 200 MG TAB PO SCH ×2 (11:28→22:05)
[2019-10-11] MEDS: PANTOPRAZOLE 40 MG TAB PO SCH (11:28)
[2019-10-11] MEDS ORDERED: VANCOMYCIN 1GM/250ML 250 ML IV ONE (11:45)
[2019-10-11] MEDS ORDERED: SUCCINYLCHOLINE CHLORIDE 20 MG/ML 10ML VIAL IV ONE (14:08)
[2019-10-11] MEDS ORDERED: LIDOCAINE 1% (LOCAL ANESTH.) PF 5ml SDV ONE (14:08)
[2019-10-11] MEDS ORDERED: diphenhdrAMINE HCL 50 MG/1 ML VL ONE (14:14)
[2019-10-11] MEDS ORDERED: MIDAZOLAM HCL 1MG/1ML-2 ML VIAL ONE (14:14)
[2019-10-11] MEDS ORDERED: METOCLOPRAMIDE HCL 5MG/ml INJ 2ml VIAL ONE (14:14)
[2019-10-11] MEDS ORDERED: GLYCOPYRROLATE 0.2 MG/ML 1ML VIAL ONE (14:14)
[2019-10-11] MEDS ORDERED: PROPOFOL 10 MG/ML 20 ML IV ONE (14:17)
[2019-10-11] MEDS ORDERED: HYDROmorphone HCL 2 MG/ML VL IV PRN ×2 (14:30)
[2019-10-11] MEDS ORDERED: ONDANSETRON HCL 4 MG/2 ML VIAL IV PRN (14:30)
[2019-10-11] MEDS ORDERED: ACCU-CHEK COMFORT CURVE STRIP VI ONE (14:30)
[2019-10-11] MEDS ORDERED: NALOXONE HCL 0.4 MG/ML VIAL IV PRN (14:30)
--- NOTE | 2019-10-11 15:25 | NUR ---
PT RETURNED FROM PROCEDURE. PT RESTLESS AND THRASHING IN BED DURING TRANSPORT. INSTRUCTED PT ON NEED TO ELEVATE FOOT.
--- NOTE | 2019-10-11 17:00 | NUR ---
PT CONTINUES TO SIT ON EDGE OF BED. REEDUCATED ON IMPORTANCE OF ELEVATING AMPUTATION SITE. WILL CONTINUE TO MONITOR.
[2019-10-11 17:32] VITALS: BP 138/67
[2019-10-11] MEDS: HYDROcodone-ACET 5/325MG TAB PO PRN (20:28)
[2019-10-11 22:00] VITALS: BP 132/68
--- NOTE | 2019-10-11 22:00 | NUR ---
assumed care, pt. resting with eyes closed, dressing on lt. foot dry and intact, not in distress.
[2019-10-11] MEDS: ATORVASTATIN 20 MG TAB PO SCH (22:06)
[2019-10-12] MEDS: PIPERACILLIN-TAZOB 2.25GM 50 ML IV SCH ×4 (02:32→21:00)
[2019-10-12 05:00] VITALS: BP 133/69
[2019-10-12] MEDS: FUROSEMIDE 20 MG/2 ML VIAL IV SCH ×2 (05:34→17:01)
[2019-10-12] MEDS: SODIUM CHLORIDE 0.9% 1,000 ML IV SCH ×2 (05:43→15:00)
[2019-10-12 06:03] LABS: Basophils # (auto) 0.1 10 ^3/uL (0-0.2); Basophils % (auto) 1.2 % (0.0-2.0); Eosinophils # (auto) 0.2 10 ^3/uL (0-0.8); Eosinophils % (auto) 2.7 % (0.0-7.0); Hematocrit 39.3 % (41.0-53.0); Hemoglobin 12.9 g/dL (13.5-17.5); Lymphocytes # (auto) 0.9 10 ^3/uL (0.4-5.4); Lymphocytes % (auto) 14.6 % (10.0-50.0); Mean Corpuscular Hemoglobin 30.3 pg (28.0-32.0); Mean Corpuscular Hgb Conc. 32.9 g/dL (32.0-36.0); Mean Corpuscular Volume 91.9 fL (80.0-100.0); Monocytes # (auto) 0.7 10 ^3/uL (0-1.3); Monocytes % (auto) 10.9 % (0.0-12.0); Neutrophils # (auto) 4.4 10 ^3/uL (1.6-8.6); Neutrophils % (auto) 70.6 % (37.0-80.0); Platelet Count (auto) 172 10^3/uL (140-450); Red Blood Cells 4.27 10^6/uL (4.5-5.90); Red Cell Distribution Width 13.9 % (11.8-14.3); White Blood Cell 6.2 10^3/uL (4.4-10.8)
[2019-10-12] MEDS: InsuLIN REG 1unit/0.01ml Soln (100units/ml) SC SCH ×4 (06:07→21:52)
[2019-10-12] MEDS: ACCU-CHEK COMFORT CURVE STRIP VI SCH ×4 (06:08→21:52)
[2019-10-12 06:21] LABS: BUN/Creatinine Ratio 16.6; Calcium 8.8 mg/dL (8.5-10.1)
--- NOTE | 2019-10-12 08:19 | NUR ---
Opening Shift Note Assumed care of patient, awake and alert. No S/S of distress/SOB or pain. Instructed on POC and to call for assist PRN, will continue to monitor for changes Q1hr and PRN.
[2019-10-12 09:00] VITALS: BP 122/65
[2019-10-12] MEDS: AMIODARONE HCL 200 MG TAB PO SCH ×2 (09:32→21:50)
[2019-10-12] MEDS: CARVEDILOL 12.5 MG TAB PO SCH ×2 (09:32→21:51)
[2019-10-12] MEDS: ASPirin 81 mg TAB PO SCH (09:32)
[2019-10-12] MEDS: PANTOPRAZOLE 40 MG TAB PO SCH (09:33)
[2019-10-12] MEDS: LISINOPRIL 10 MG TAB PO SCH (09:33)
--- NOTE | 2019-10-12 09:46 | NUR ---
PT REQUESTING EYE DROPS "THE EYE DROP WITH THE PINK CAP FOR MY EYES IT HURTS" AND ALSO REQUESTING LACTULOSE FOR CONSTIPATION, PT STILL REFUSING TELE, NOTED TOLD PT I WILL ASK MD WHEN THEY ROUND PT VERBALIZED UNDERSTANDING
[2019-10-12] MEDS ORDERED: VANCOMYCIN 1GM/250ML 250 ML IV SCH (10:00)
--- NOTE | 2019-10-12 10:23 | NUR ---
CALLED PHARMACY TO RESCHEDULE VANCOMYCIN DUE TO SLOW RUNNING ZOZYN PER PHARMACY THEY WILL RESCHEDULE
--- NOTE | 2019-10-12 10:24 | NUR ---
DR ROONEY AT [facility] INFORMED HER OF PT REQUEST FOR MEDICATION, PER MD POSSIBLE DC TODAY
--- NOTE | 2019-10-12 10:31 | NUR ---
SPORTS COORDINATOR ALEXA CALLED [facility] TO CONFIRM PT IS A RESIDENT THERE, PER [facility] PT HAS A BED HOLD THERE, EXPECTED TO RETURN, ALEXA SPOKE TO PATIENT AND CONFIMRED PT [facility]
--- NOTE | 2019-10-12 10:45 | NUR ---
MD ROONEY BEDSIDE PT NOW STATING HE NEEDS TO STAY IN HOPSITAL TO GIVE HIS FRIEND HIS TRAILER KEYS SO IT CAN GET CLEANED SO HE CAN STAY THERE, AND IF HE LEAVES THIS HOSPITAL NEEDS TO PROVIDE THE KEYS TO HIS FRIEND ON WEDNESDAY, EXPLAINED IN DETAIL TO PT THAT HE IS MEDICALLY CLEARED FOR DISCHARGE AND [facility] ACCEPTED HIM BACK PER HIS ORIGINAL AGREEMENT TO GO THERE. PT AGREED TO GO TO [facility]
[2019-10-12] MEDS ORDERED: LINE1TAB6 PO (11:05)
[2019-10-12] MEDS ORDERED: AMOX500T86 PO (11:05)
--- NOTE | 2019-10-12 12:30 | NUR ---
PT NOTED HE TOOK OUT PERIPHERAL IV NO BLEEDING NOTED, PT RIPED IV LINE OFF
[2019-10-12] MEDS: VANCOMYCIN 1GM/250ML 250 ML IV SCH (12:57)
[2019-10-12 13:00] VITALS: BP 113/64
--- NOTE | 2019-10-12 15:27 | NUR ---
INFORMED PT HIS RIDE WILL BE HERE AT 1730 FOR CAMPAIGN DEVELOPER TO [facility]
--- NOTE | 2019-10-12 15:40 | NUR ---
assessment re: consult for needing help Patient is a 68 year old male who is alert and oriented. Prior to admission patient was skilled at [facility]. Per patient he will be returning to [facility] for wound care. Patients PCP is Dr Brown. Patient has a cane for home use. I informed patient he has a ss consult for needing extra help at home. Patient informed me that was if he was returning home, he would need home health. Patient states he doesn't need the help since he is returning to [facility]. I informed patient Jyothi GALE will be satisfying his order to return. Patient verbalized understanding and agreed to discharge plan to [facility]. Addendum: 10/12/19 at 1545 by Sera Kemp Amended: Links added.
--- NOTE | 2019-10-12 15:47 | NUR ---
GAVE REPORT TO ALEXYS HECK PT GOING TO BED 506-1
--- NOTE | 2019-10-12 16:26 | NUR ---
D/C Planning Per consult for SNF placement for [facility]. Faxed clinical information to [facility] and [facility]. Per Sharmila [phone] patient has been accepted to room 506 bed 1 accepting , Dr. Webster. Obtain authorization from [facility] SN[facility] [id number]. and for transportation [id number] Transportation has been arranged with [employer] with a 17:30 forklift picker time via [employer]. Informed RN Nicolasa.
[2019-10-12 17:00] VITALS: BP 133/65
[2019-10-12] MEDS: HYDROcodone-ACET 5/325MG TAB PO PRN (17:20)
--- NOTE | 2019-10-12 17:21 | NUR ---
CALLED [employer] PT ALREADY SIGNED DISCHARGE PAPERS AWAITING TRANSPORT, STATED IF I DONT GET A NORCO IM NOT GETTING ON THE GRNEY, NORCO GIVEN FOR PAIN 07/18 ON FOOT
--- NOTE | 2019-10-12 18:06 | NUR ---
called erik distribution supervisor to find contact information for Arron sarmiento to follow up on medicinal plant picker time, she stated she will call me back
--- NOTE | 2019-10-12 18:14 | NUR ---
spoke to [employer], found number from previous admission [phone], per track moving machine operator they will be here in 15minutes
--- NOTE | 2019-10-12 18:34 | NUR ---
spoke to [place] [employer] again regarding no arrival of spanish moss picker. placed on long hold and was informed they cant reach disbatch to see the eta
--- NOTE | 2019-10-12 18:43 | NUR ---
still on hold awaiting disbatch and the line was disconnected charge made aware will endorse to next shift
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
[2019-10-12] MEDS: ATORVASTATIN 20 MG TAB PO SCH (21:51)
[2019-10-12 22:00] VITALS: BP 141/53
[2019-10-13] MEDS: SODIUM CHLORIDE 0.9% 1,000 ML IV SCH ×2 (01:00→10:41)
[2019-10-13] MEDS: PIPERACILLIN-TAZOB 2.25GM 50 ML IV SCH ×3 (03:00→11:17)
[2019-10-13 05:36] VITALS: BP 138/61
[2019-10-13] MEDS: FUROSEMIDE 20 MG/2 ML VIAL IV SCH ×2 (05:57→11:17)
[2019-10-13] MEDS: ACCU-CHEK COMFORT CURVE STRIP VI SCH ×2 (05:59→11:17)
[2019-10-13] MEDS: InsuLIN REG 1unit/0.01ml Soln (100units/ml) SC SCH ×2 (05:59→11:17)
--- NOTE | 2019-10-13 06:12 | NUR ---
Called [employer] to set up transportation. The masking machine operator explained that we need to call [facility] to set up a gurney ride. They open at 0800.
[2019-10-13] MEDS: HYDROcodone-ACET 5/325MG TAB PO PRN ×2 (06:42→10:42)
[2019-10-13 09:00] VITALS: BP 149/73
[2019-10-13] MEDS: ASPirin 81 mg TAB PO SCH (10:00)
[2019-10-13] MEDS: PANTOPRAZOLE 40 MG TAB PO SCH (10:00)
[2019-10-13] MEDS: CARVEDILOL 12.5 MG TAB PO SCH (10:00)
[2019-10-13] MEDS: AMIODARONE HCL 200 MG TAB PO SCH (10:00)
[2019-10-13] MEDS: LISINOPRIL 10 MG TAB PO SCH (10:00)
--- NOTE | 2019-10-13 11:06 | NUR ---
Discharge instructions given as ordered. All questions and concerns addressed. Patient verbalized understanding. IV removed with catheter intact, pressure dressing applied, tran catheter removed. Medication reconciliation form completed and copy given to patient. Patient transported by with all personal belongings. No distress noted at time of departure.
[2019-10-13] MEDS: VANCOMYCIN 1GM/250ML 250 ML IV SCH (11:17)
== END 2019-10-13 11:00 | DRG 314 ==
LOC: ER 11:19 → TELE 11:20 → TELE-WESTW 14:00
PROVIDERS: ADMIT Hospitalist; ATTEND Internal Medicine Pulmonary Disease
PROC: 0Y6Q0Z0 Detachment at Left 1st Toe, Complete, Open Approach (ICD-10-PCS; principal; 2019-10-11 14:05)
DX: E11.69 Type 2 diabetes mellitus with other specified complication (principal); M86.8X7 Other osteomyelitis, ankle and foot; N18.3 Chronic kidney disease, stage 3 (moderate); E11.21 Type 2 diabetes mellitus with diabetic nephropathy; L97.529 Non-pressure chronic ulcer of other part of left foot with unspecified severity; J44.9 Chronic obstructive pulmonary disease, unspecified; D64.9 Anemia, unspecified; E66.9 Obesity, unspecified; E78.5 Hyperlipidemia, unspecified; I25.10 Atherosclerotic heart disease of native coronary artery without angina pectoris; I50.82 Biventricular heart failure; I13.0 Hypertensive heart and chronic kidney disease with heart failure and stage 1 through stage 4 chronic kidney disease, or unspecified chronic kidney disease; I44.7 Left bundle-branch block, unspecified; F17.200 Nicotine dependence, unspecified, uncomplicated; K59.00 Constipation, unspecified; E11.22 Type 2 diabetes mellitus with diabetic chronic kidney disease; E11.621 Type 2 diabetes mellitus with foot ulcer; Z91.19 Patient's noncompliance with other medical treatment and regimen; Z79.4 Long term (current) use of insulin; Z95.1 Presence of aortocoronary bypass graft; Z89.412 Acquired absence of left great toe; Z86.73 Personal history of transient ischemic attack (TIA), and cerebral infarction without residual deficits; I25.2 Old myocardial infarction; Z68.33 Body mass index [BMI] 33.0-33.9, adult; Z83.3 Family history of diabetes mellitus; Z90.49 Acquired absence of other specified parts of digestive tract; Z79.899 Other long term (current) drug therapy; Z79.82 Long term (current) use of aspirin; Z82.49 Family history of ischemic heart disease and other diseases of the circulatory system; E11.52 Type 2 diabetes mellitus with diabetic peripheral angiopathy with gangrene; I96 Gangrene, not elsewhere classified
CPT/HCPCS: 36415; 71045; 73700; 80048; 80053; 80061; 80202; 80307; 81001; 82962; 83036; 84484; 85025; 85610; 85652; 85730; 86850; 86900; 86901; 87040; 87070; 87081; 87086; 87205; 93005; C9113; G0378; J0330; J2250; J2543; J2704; J3490

== ENCOUNTER 2020-03-14 21:34 | Inpatient (IN) | payer MEDICARE, MEDICAID ==
[~2020-03-14] VITALS: Ht 170.2 cm; Wt 84.0 kg
[~2020-03-14 21:34] MED LIST changes: +ACET-1304 PO; +AMLO-489 PO; +AMOX500T86 PO; +ASCO500T11 PO; +ATOR20TA50 PO; +BISA10SU45 RE; +CHOL20007 PO; +DOCU-94 PO; +FLEETMIN PR; +HYDR-4833 PO; +INSREG3 SC; +LACT10SO3 PO; +LINE1TAB6 PO; -LOVA20TA4 PO; +MAGN400S25 PO; +NITR0.4S29 SL; +PRED1SUS4 OP
[2020-03-14] MEDS ORDERED: MORPHINE SULFATE 4 MG/ML SYR/VIAL IV ONE (22:00)
[2020-03-14] MEDS ORDERED: ONDANSETRON HCL 4 MG/2 ML VIAL IV ONE (22:00)
[2020-03-14] MEDS ORDERED: VANCOMYCIN 1GM/250ML 250 ML IV ONE (22:00)
[2020-03-14 22:29] LABS: Basophils # (auto) 0.1 10 ^3/uL (0-0.2); Basophils % (auto) 1.4 % (0.0-2.0); Eosinophils # (auto) 0.1 10 ^3/uL (0-0.8); Eosinophils % (auto) 2.7 % (0.0-7.0); Hematocrit 38.5 % (41.0-53.0); Hemoglobin 12.8 g/dL (13.5-17.5); Lymphocytes # (auto) 1.5 10 ^3/uL (0.4-5.4); Lymphocytes % (auto) 27.2 % (10.0-50.0); Mean Corpuscular Hemoglobin 31.1 pg (28.0-32.0); Mean Corpuscular Hgb Conc. 33.1 g/dL (32.0-36.0); Mean Corpuscular Volume 93.9 fL (80.0-100.0); Monocytes # (auto) 0.5 10 ^3/uL (0-1.3); Monocytes % (auto) 9.8 % (0.0-12.0); Neutrophils # (auto) 3.2 10 ^3/uL (1.6-8.6); Neutrophils % (auto) 58.9 % (37.0-80.0); Platelet Count (auto) 165 10^3/uL (140-450); Red Cell Distribution Width 14.2 % (11.8-14.3); White Blood Cell 5.4 10^3/uL (4.4-10.8)
[2020-03-14 22:54] LABS: INR 1.02 (0.9-1.15); Partial Thromboplastin Time 27.3 sec (23.0-31.2)
[2020-03-14 22:57] LABS: Albumin 3.6 g/dL (3.4-5.0); CRP High Sensitivity 0.11 mg/dL (< 0.3); Calcium 8.6 mg/dL (8.5-10.1); Magnesium 2.4 mg/dL (1.6-2.6); Potassium 4.2 mmol/L (3.5-5.1)
[2020-03-14 23:00] LABS: BUN/Creatinine Ratio 14.6; Bilirubin, Total 0.4 mg/dL (0.2-1.0); Total Protein 7.4 g/dL (6.4-8.2)
[2020-03-15] MEDS ORDERED: MORPHINE SULFATE 4 MG/ML SYR/VIAL IV ONE (02:30)
[2020-03-15] MEDS ORDERED: VANCOMYCIN PER PHARMACY 0 MG IV SCH (05:15)
[2020-03-15] MEDS ORDERED: DEXTROSE (50%) 50ML SYRG IV PRN (05:15)
[2020-03-15] MEDS ORDERED: NITROGLYCERIN 0.4 MG SL TAB SL PRN (05:15)
[2020-03-15] MEDS ORDERED: ACETAMINOPHEN 325 MG TAB PO PRN (05:15)
[2020-03-15] MEDS ORDERED: ONDANSETRON HCL 4 MG/2 ML VIAL IV PRN (05:15)
[2020-03-15] MEDS ORDERED: DOCUSATE SOD 100 MG CAP PO PRN (05:15)
[2020-03-15] MEDS ORDERED: MORPHINE SULF INJ 2 MG/ML SYRINGE 1ML IV PRN (05:15)
[2020-03-15] MEDS: SODIUM CHLOR 0.9% PF (SALINE LOCK) 10ML VIAL/SYR IV SCH ×3 (06:21→22:08)
[2020-03-15] MEDS: InsuLIN REG 1unit/0.01ml Soln (100units/ml) SC SCH ×4 (06:32→21:45)
[2020-03-15] MEDS: ACCU-CHEK COMFORT CURVE STRIP VI SCH ×4 (06:33→22:06)
[2020-03-15 08:00] VITALS: BP 152/70
[2020-03-15 08:22] LABS: Urine Bacteria NONE SEEN /hpf (None Seen); Urine Blood Negative /uL (Negative); Urine Hyaline Cast FEW /lpf (0 - 2); Urine Specific Gravity 1.023 (1.001-1.035); Urine WBC <1 /hpf (0 - 3)
[2020-03-15 09:00] VITALS: BP 152/70
[2020-03-15 09:14] LABS: Basophils # (auto) 0.1 10 ^3/uL (0-0.2); Basophils % (auto) 1.2 % (0.0-2.0); Eosinophils # (auto) 0.2 10 ^3/uL (0-0.8); Eosinophils % (auto) 3.1 % (0.0-7.0); Hematocrit 38.6 % (41.0-53.0); Hemoglobin 12.9 g/dL (13.5-17.5); Lymphocytes # (auto) 1.2 10 ^3/uL (0.4-5.4); Lymphocytes % (auto) 22.3 % (10.0-50.0); Mean Corpuscular Hemoglobin 31.2 pg (28.0-32.0); Mean Corpuscular Hgb Conc. 33.3 g/dL (32.0-36.0); Mean Corpuscular Volume 93.6 fL (80.0-100.0); Monocytes # (auto) 0.6 10 ^3/uL (0-1.3); Monocytes % (auto) 10.7 % (0.0-12.0); Neutrophils # (auto) 3.3 10 ^3/uL (1.6-8.6); Neutrophils % (auto) 62.7 % (37.0-80.0); Nucleated Red Blood Cells % 0.1 %; Platelet Count (auto) 155 10^3/uL (140-450); Red Blood Cells 4.12 10^6/uL (4.5-5.90); Red Cell Distribution Width 14.3 % (11.8-14.3); White Blood Cell 5.3 10^3/uL (4.4-10.8)
[2020-03-15] MEDS: ZINC SULFATE 220mg CAP or TAB PO SCH (09:28)
[2020-03-15] MEDS: MULTIPLE VITAMIN TAB PO SCH (09:28)
[2020-03-15] MEDS: ASCORBIC ACID 500 MG TAB PO SCH ×2 (09:29→22:08)
[2020-03-15 09:33] LABS: Albumin 3.5 g/dL (3.4-5.0); BUN/Creatinine Ratio 14.3; Calcium 8.8 mg/dL (8.5-10.1); Potassium 4.2 mmol/L (3.5-5.1)
[2020-03-15] MEDS: MORPHINE SULFATE 4 MG/ML SYR/VIAL IV PRN ×2 (09:34→21:45)
[2020-03-15] MEDS: HEPARIN SODIUM (PORCINE) 5000 UNITS/ML 1ML VIAL SC SCH ×2 (09:34→21:45)
[2020-03-15 09:36] LABS: Bilirubin, Total 0.4 mg/dL (0.2-1.0); Total Protein 6.9 g/dL (6.4-8.2)
[2020-03-15] MEDS ORDERED: FAMOTIDINE 20 MG TAB PO SCH (10:00)
[2020-03-15] MEDS ORDERED: LORazepam 0.5 MG TAB PO PRN (11:15)
[2020-03-15] MEDS ORDERED: cefTRIAXone 1GM/50ML D5W 50 ML IV ONE (11:15)
[2020-03-15] MEDS ORDERED: ATOR40TA52 PO (12:39)
[2020-03-15] MEDS ORDERED: CLIN-203 PO (12:42)
[2020-03-15] MEDS ORDERED: MET25T PO (12:43)
[2020-03-15] MEDS ORDERED: INSU70IN3 SC (12:47)
[2020-03-15] MEDS ORDERED: APIX2.5T PO (13:28)
[2020-03-15 15:31] VITALS: BP 136/74
[2020-03-15] MEDS: VANCOMYCIN 1GM/250ML 250 ML IV SCH (18:23)
[2020-03-15 22:00] VITALS: BP 157/81
[2020-03-16] MEDS: MORPHINE SULFATE 4 MG/ML SYR/VIAL IV PRN ×3 (02:15→20:55)
[2020-03-16 05:00] VITALS: BP 150/69
[2020-03-16 05:39] LABS: Basophils # (auto) 0.1 10 ^3/uL (0-0.2); Eosinophils # (auto) 0.3 10 ^3/uL (0-0.8); Eosinophils % (auto) 5.2 % (0.0-7.0); Hematocrit 37.8 % (41.0-53.0); Hemoglobin 12.5 g/dL (13.5-17.5); Lymphocytes # (auto) 1.1 10 ^3/uL (0.4-5.4); Lymphocytes % (auto) 22.1 % (10.0-50.0); Mean Corpuscular Hemoglobin 30.9 pg (28.0-32.0); Mean Corpuscular Hgb Conc. 33.2 g/dL (32.0-36.0); Mean Corpuscular Volume 93.2 fL (80.0-100.0); Monocytes # (auto) 0.5 10 ^3/uL (0-1.3); Monocytes % (auto) 10.7 % (0.0-12.0); Neutrophils # (auto) 3.1 10 ^3/uL (1.6-8.6); Nucleated Red Blood Cells % 0.1 %; Platelet Count (auto) 138 10^3/uL (140-450); Red Blood Cells 4.06 10^6/uL (4.5-5.90); Red Cell Distribution Width 14.2 % (11.8-14.3); White Blood Cell 5.1 10^3/uL (4.4-10.8)
[2020-03-16 05:55] LABS: Albumin 3.3 g/dL (3.4-5.0); BUN/Creatinine Ratio 15.2; Calcium 8.8 mg/dL (8.5-10.1); Potassium 4.3 mmol/L (3.5-5.1)
[2020-03-16 05:58] LABS: Bilirubin, Total 0.5 mg/dL (0.2-1.0); Total Protein 6.4 g/dL (6.4-8.2)
[2020-03-16] MEDS: ACCU-CHEK COMFORT CURVE STRIP VI SCH ×4 (06:37→21:01)
[2020-03-16] MEDS: InsuLIN REG 1unit/0.01ml Soln (100units/ml) SC SCH ×4 (06:37→21:00)
[2020-03-16] MEDS: SODIUM CHLOR 0.9% PF (SALINE LOCK) 10ML VIAL/SYR IV SCH ×3 (06:38→20:54)
[2020-03-16 08:00] VITALS: BP 148/95
[2020-03-16] MEDS: cefTRIAXone 1GM/50ML D5W 50 ML IV SCH (10:20)
[2020-03-16] MEDS: ZINC SULFATE 220mg CAP or TAB PO SCH (10:21)
[2020-03-16] MEDS: ASCORBIC ACID 500 MG TAB PO SCH ×2 (10:21→21:00)
[2020-03-16] MEDS: MULTIPLE VITAMIN TAB PO SCH (10:21)
[2020-03-16] MEDS: FAMOTIDINE 20 MG TAB PO SCH (10:21)
[2020-03-16] MEDS: HEPARIN SODIUM (PORCINE) 5000 UNITS/ML 1ML VIAL SC SCH ×2 (10:22→21:01)
[2020-03-16] MEDS: VANCOMYCIN 1GM/250ML 250 ML IV SCH (13:41)
[2020-03-16 16:24] VITALS: BP 146/58
[2020-03-16 22:00] VITALS: BP 146/70
[2020-03-17] MEDS: MORPHINE SULFATE 4 MG/ML SYR/VIAL IV PRN (00:50)
[2020-03-17 05:00] VITALS: BP 154/79
[2020-03-17] MEDS: ACCU-CHEK COMFORT CURVE STRIP VI SCH ×4 (06:20→21:19)
[2020-03-17] MEDS: SODIUM CHLOR 0.9% PF (SALINE LOCK) 10ML VIAL/SYR IV SCH ×4 (06:20→21:19)
[2020-03-17] MEDS: InsuLIN REG 1unit/0.01ml Soln (100units/ml) SC SCH ×4 (06:20→21:20)
[2020-03-17 07:00] LABS: Basophils # (auto) 0 10 ^3/uL (0-0.2); Basophils % (auto) 0.8 % (0.0-2.0); Eosinophils # (auto) 0.2 10 ^3/uL (0-0.8); Eosinophils % (auto) 4.5 % (0.0-7.0); Hematocrit 37.2 % (41.0-53.0); Hemoglobin 12.5 g/dL (13.5-17.5); Lymphocytes # (auto) 0.8 10 ^3/uL (0.4-5.4); Lymphocytes % (auto) 20.7 % (10.0-50.0); Mean Corpuscular Hgb Conc. 33.7 g/dL (32.0-36.0); Monocytes # (auto) 0.4 10 ^3/uL (0-1.3); Monocytes % (auto) 11.2 % (0.0-12.0); Neutrophils # (auto) 2.5 10 ^3/uL (1.6-8.6); Neutrophils % (auto) 62.8 % (37.0-80.0); Nucleated Red Blood Cells % 0.1 %; Platelet Count (auto) 143 10^3/uL (140-450); Red Blood Cells 4.04 10^6/uL (4.5-5.90); Red Cell Distribution Width 14.6 % (11.8-14.3)
[2020-03-17 07:22] LABS: Calcium 8.5 mg/dL (8.5-10.1); Potassium 4.2 mmol/L (3.5-5.1)
[2020-03-17 08:00] VITALS: BP 157/85
[2020-03-17] MEDS: cefTRIAXone 1GM/50ML D5W 50 ML IV SCH (08:24)
[2020-03-17] MEDS: ZINC SULFATE 220mg CAP or TAB PO SCH (09:49)
[2020-03-17] MEDS: VANCOMYCIN 1GM/250ML 250 ML IV SCH (09:49)
[2020-03-17] MEDS: HEPARIN SODIUM (PORCINE) 5000 UNITS/ML 1ML VIAL SC SCH ×2 (09:50→21:21)
[2020-03-17] MEDS: FAMOTIDINE 20 MG TAB PO SCH (09:50)
[2020-03-17] MEDS: MULTIPLE VITAMIN TAB PO SCH (09:50)
[2020-03-17] MEDS: ASCORBIC ACID 500 MG TAB PO SCH ×2 (09:50→21:19)
[2020-03-17] MEDS ORDERED: LACTULOSE 20Gm/30ML SOLN PO PRN (13:30)
[2020-03-17 16:00] VITALS: BP 155/77
[2020-03-17 21:43] VITALS: BP 131/69
[2020-03-17] MEDS: HYDROcodone-ACET 5/325MG TAB PO PRN (23:18)
[2020-03-18] MEDS: HYDROcodone-ACET 5/325MG TAB PO PRN ×3 (03:58→22:22)
[2020-03-18 05:00] VITALS: BP 137/70
[2020-03-18] MEDS: VANCOMYCIN 1GM/250ML 250 ML IV SCH ×2 (06:05→06:53)
[2020-03-18] MEDS: ACCU-CHEK COMFORT CURVE STRIP VI SCH ×4 (06:06→21:37)
[2020-03-18] MEDS: SODIUM CHLOR 0.9% PF (SALINE LOCK) 10ML VIAL/SYR IV SCH ×5 (06:06→21:37)
[2020-03-18] MEDS: InsuLIN REG 1unit/0.01ml Soln (100units/ml) SC SCH ×4 (06:21→22:05)
[2020-03-18 06:35] LABS: Basophils # (auto) 0 10 ^3/uL (0-0.2); Basophils % (auto) 0.7 % (0.0-2.0); Eosinophils # (auto) 0.2 10 ^3/uL (0-0.8); Eosinophils % (auto) 4.6 % (0.0-7.0); Hemoglobin 12.2 g/dL (13.5-17.5); Lymphocytes # (auto) 1.1 10 ^3/uL (0.4-5.4); Lymphocytes % (auto) 26.5 % (10.0-50.0); Mean Corpuscular Hemoglobin 31.4 pg (28.0-32.0); Mean Corpuscular Volume 92.3 fL (80.0-100.0); Monocytes # (auto) 0.5 10 ^3/uL (0-1.3); Monocytes % (auto) 11.8 % (0.0-12.0); Neutrophils # (auto) 2.4 10 ^3/uL (1.6-8.6); Neutrophils % (auto) 56.4 % (37.0-80.0); Nucleated Red Blood Cells % 0.1 %; Platelet Count (auto) 148 10^3/uL (140-450); Red Cell Distribution Width 14.5 % (11.8-14.3); White Blood Cell 4.3 10^3/uL (4.4-10.8)
[2020-03-18 06:50] LABS: BUN/Creatinine Ratio 16.3; Calcium 8.6 mg/dL (8.5-10.1)
[2020-03-18 08:00] VITALS: BP 135/68
[2020-03-18] MEDS: cefTRIAXone 1GM/50ML D5W 50 ML IV SCH (10:07)
[2020-03-18] MEDS: MULTIPLE VITAMIN TAB PO SCH (10:08)
[2020-03-18] MEDS: ZINC SULFATE 220mg CAP or TAB PO SCH (10:08)
[2020-03-18] MEDS: FAMOTIDINE 20 MG TAB PO SCH (10:08)
[2020-03-18] MEDS: ASCORBIC ACID 500 MG TAB PO SCH ×2 (10:08→21:37)
[2020-03-18] MEDS: HEPARIN SODIUM (PORCINE) 5000 UNITS/ML 1ML VIAL SC SCH ×2 (10:09→21:38)
[2020-03-18 16:00] VITALS: BP 151/76
[2020-03-18 22:00] VITALS: BP 107/74
[2020-03-19] VITALS: BP 107/74
[2020-03-19] MEDS: VANCOMYCIN 1GM/250ML 250 ML IV SCH ×2 (02:12→21:54)
[2020-03-19] MEDS: HYDROcodone-ACET 5/325MG TAB PO PRN ×4 (02:22→20:10)
[2020-03-19 06:00] VITALS: BP 127/67
[2020-03-19] MEDS: ACCU-CHEK COMFORT CURVE STRIP VI SCH ×4 (06:13→21:56)
[2020-03-19] MEDS: SODIUM CHLOR 0.9% PF (SALINE LOCK) 10ML VIAL/SYR IV SCH ×5 (06:13→21:55)
[2020-03-19] MEDS: InsuLIN REG 1unit/0.01ml Soln (100units/ml) SC SCH ×4 (06:21→21:56)
[2020-03-19] MEDS ORDERED: ROPIVACAINE 0.5% (5MG/ML) 20ML AMPULE IJ ONE (06:51)
[2020-03-19] MEDS ORDERED: NEOMYCIN-BACITRACIN-POLYM 15GM TOP OINT TOP ONE (06:51)
[2020-03-19] MEDS ORDERED: MORPHINE SULFATE 4 MG/ML SYR/VIAL IV PRN (07:00)
[2020-03-19] MEDS ORDERED: ACCU-CHEK COMFORT CURVE STRIP VI ONE (07:00)
[2020-03-19] MEDS ORDERED: METOCLOPRAMIDE HCL 5MG/ml INJ 2ml VIAL IV PRN (07:00)
[2020-03-19] MEDS ORDERED: HYDROmorphone HCL 2 MG/ML VL IV PRN (07:00)
[2020-03-19] MEDS ORDERED: ONDANSETRON HCL 4 MG/2 ML VIAL ONE (07:04)
[2020-03-19] MEDS ORDERED: MIDAZOLAM HCL 1MG/1ML-2 ML VIAL ONE (07:04)
[2020-03-19] MEDS ORDERED: SODIUM CHLORIDE LOCK 0 ML ONE (07:04)
[2020-03-19] MEDS ORDERED: PROPOFOL 10 MG/ML 20 ML IV ONE (07:04)
[2020-03-19] MEDS ORDERED: fentaNYL CITRATE 100 MCG/2 ML VL ONE (07:04)
[2020-03-19] MEDS ORDERED: ceFAZolin 1GM VL ONE (07:05)
[2020-03-19] MEDS ORDERED: LIDOCAINE 1% HCL (LOCAL ANESTH.) INJ 20ML MDV ONE (07:21)
[2020-03-19 07:24] LABS: Basophils # (auto) 0 10 ^3/uL (0-0.2); Basophils % (auto) 0.9 % (0.0-2.0); Eosinophils # (auto) 0.2 10 ^3/uL (0-0.8); Eosinophils % (auto) 4.6 % (0.0-7.0); Hematocrit 34.5 % (41.0-53.0); Hemoglobin 11.7 g/dL (13.5-17.5); Lymphocytes # (auto) 1.3 10 ^3/uL (0.4-5.4); Lymphocytes % (auto) 26.5 % (10.0-50.0); Mean Corpuscular Hemoglobin 31.4 pg (28.0-32.0); Mean Corpuscular Hgb Conc. 33.9 g/dL (32.0-36.0); Mean Corpuscular Volume 92.5 fL (80.0-100.0); Monocytes # (auto) 0.7 10 ^3/uL (0-1.3); Monocytes % (auto) 13.2 % (0.0-12.0); Neutrophils # (auto) 2.8 10 ^3/uL (1.6-8.6); Neutrophils % (auto) 54.8 % (37.0-80.0); Nucleated Red Blood Cells % 0.1 %; Platelet Count (auto) 137 10^3/uL (140-450); Red Blood Cells 3.73 10^6/uL (4.5-5.90); Red Cell Distribution Width 14.3 % (11.8-14.3); White Blood Cell 5.1 10^3/uL (4.4-10.8)
[2020-03-19 07:28] LABS: INR 1.03 (0.9-1.15)
[2020-03-19 07:51] LABS: Potassium 4.2 mmol/L (3.5-5.1)
[2020-03-19 07:59] LABS: BUN/Creatinine Ratio 14.3; Calcium 8.7 mg/dL (8.5-10.1)
[2020-03-19 08:00] VITALS: BP 163/118
[2020-03-19] MEDS: FAMOTIDINE 20 MG TAB PO SCH (09:19)
[2020-03-19] MEDS: ZINC SULFATE 220mg CAP or TAB PO SCH (09:19)
[2020-03-19] MEDS: MULTIPLE VITAMIN TAB PO SCH (09:19)
[2020-03-19] MEDS: ASCORBIC ACID 500 MG TAB PO SCH ×2 (09:20→21:54)
[2020-03-19] MEDS: HEPARIN SODIUM (PORCINE) 5000 UNITS/ML 1ML VIAL SC SCH ×2 (09:41→21:54)
[2020-03-19] MEDS: cefTRIAXone 1GM/50ML D5W 50 ML IV SCH (09:43)
[2020-03-19 13:00] VITALS: BP 184/97
[2020-03-19] MEDS ORDERED: LIDOCAINE 1% (LOCAL ANESTH.) PF 5ml SDV ID ONE (17:00)
[2020-03-19 17:20] VITALS: BP 160/76
[2020-03-19] MEDS ORDERED: ERGOCALCIFEROL 50,000 UNIT(1.25MG) CAP PO SCH (18:45)
[2020-03-19] MEDS: hydrALAZINE HCL 25 MG TAB PO PRN (18:46)
[2020-03-20] MEDS: HYDROcodone-ACET 5/325MG TAB PO PRN ×3 (03:40→20:18)
[2020-03-20 05:00] VITALS: BP 157/86
[2020-03-20] MEDS: SODIUM CHLOR 0.9% PF (SALINE LOCK) 10ML VIAL/SYR IV SCH ×3 (06:09→14:00)
[2020-03-20] MEDS: InsuLIN REG 1unit/0.01ml Soln (100units/ml) SC SCH ×4 (06:10→20:24)
[2020-03-20] MEDS: ACCU-CHEK COMFORT CURVE STRIP VI SCH ×4 (06:10→22:00)
[2020-03-20 06:28] LABS: Basophils # (auto) 0 10 ^3/uL (0-0.2); Eosinophils # (auto) 0.2 10 ^3/uL (0-0.8); Hematocrit 36.9 % (41.0-53.0); Hemoglobin 12.2 g/dL (13.5-17.5); Lymphocytes # (auto) 1.1 10 ^3/uL (0.4-5.4); Lymphocytes % (auto) 21.9 % (10.0-50.0); Mean Corpuscular Hemoglobin 30.8 pg (28.0-32.0); Mean Corpuscular Volume 93.2 fL (80.0-100.0); Monocytes # (auto) 0.6 10 ^3/uL (0-1.3); Monocytes % (auto) 12.1 % (0.0-12.0); Nucleated Red Blood Cells % 0.1 %; Platelet Count (auto) 131 10^3/uL (140-450); Red Blood Cells 3.96 10^6/uL (4.5-5.90); Red Cell Distribution Width 14.6 % (11.8-14.3); White Blood Cell 4.9 10^3/uL (4.4-10.8)
[2020-03-20 06:41] LABS: BUN/Creatinine Ratio 16.6; Calcium 8.6 mg/dL (8.5-10.1); Magnesium 2.3 mg/dL (1.6-2.6); Phosphorus 3.3 mg/dL (2.5-4.90); Potassium 4.2 mmol/L (3.5-5.1)
[2020-03-20 09:00] VITALS: BP 153/76
[2020-03-20] MEDS: cefTRIAXone 1GM/50ML D5W 50 ML IV SCH (09:19)
[2020-03-20] MEDS: hydrALAZINE HCL 25 MG TAB PO PRN ×2 (09:20→17:57)
[2020-03-20] MEDS ORDERED: LIDOCAINE 1% HCL (LOCAL ANESTH.) INJ 20ML MDV ONE (09:32)
[2020-03-20] MEDS ORDERED: BUPIVACAINE 0.5% MPF INJ 30ML SDV IJ ONE (09:32)
[2020-03-20] MEDS: FAMOTIDINE 20 MG TAB PO SCH (10:00)
[2020-03-20] MEDS: MULTIPLE VITAMIN TAB PO SCH (10:00)
[2020-03-20] MEDS: ASCORBIC ACID 500 MG TAB PO SCH ×2 (10:00→20:19)
[2020-03-20] MEDS: ZINC SULFATE 220mg CAP or TAB PO SCH (10:00)
[2020-03-20] MEDS ORDERED: DAKINS HALF STR 0.25% (NaHypochlorite) 473 ML TOPICAL SOL TOP ONE (10:30)
[2020-03-20] MEDS ORDERED: MIDAZOLAM HCL 1MG/1ML-2 ML VIAL ONE ×2 (10:50→10:57)
[2020-03-20] MEDS ORDERED: METOCLOPRAMIDE HCL 5MG/ml INJ 2ml VIAL ONE (10:54)
[2020-03-20] MEDS ORDERED: diphenhdrAMINE HCL 50 MG/1 ML VL ONE (10:54)
[2020-03-20] MEDS ORDERED: GLYCOPYRROLATE 0.2 MG/ML 1ML VIAL ONE (10:55)
[2020-03-20] MEDS ORDERED: LIDOCAINE 2% (LOCAL ANESTH.) PF 5ml SDV ONE (10:59)
[2020-03-20] MEDS ORDERED: PROPOFOL 10 MG/ML 20 ML IV ONE (10:59)
[2020-03-20] MEDS ORDERED: NALOXONE HCL 0.4 MG/ML VIAL IV PRN (12:00)
[2020-03-20] MEDS ORDERED: ACCU-CHEK COMFORT CURVE STRIP VI ONE (12:00)
[2020-03-20] MEDS ORDERED: HYDROmorphone HCL 2 MG/ML VL IV PRN (12:00)
[2020-03-20 13:00] VITALS: BP 148/91
[2020-03-20] MEDS: HEPARIN SODIUM (PORCINE) 5000 UNITS/ML 1ML VIAL SC SCH ×2 (16:13→20:24)
[2020-03-20 17:00] VITALS: BP 144/80
[2020-03-20] MEDS: VANCOMYCIN 1GM/250ML 250 ML IV SCH (17:41)
[2020-03-20 20:00] VITALS: BP 151/74
[2020-03-20 22:00] VITALS: BP 159/63
[2020-03-21] MEDS: HYDROcodone-ACET 5/325MG TAB PO PRN (03:16)
[2020-03-21 05:00] VITALS: BP 140/70
[2020-03-21] MEDS: InsuLIN REG 1unit/0.01ml Soln (100units/ml) SC SCH ×4 (06:25→22:12)
[2020-03-21] MEDS: SODIUM CHLOR 0.9% PF (SALINE LOCK) 10ML VIAL/SYR IV SCH ×7 (06:40→22:00)
[2020-03-21] MEDS: ACCU-CHEK COMFORT CURVE STRIP VI SCH ×4 (06:44→22:26)
[2020-03-21 08:00] VITALS: BP 97/53
[2020-03-21 09:00] VITALS: BP 173/100
[2020-03-21] MEDS: HEPARIN SODIUM (PORCINE) 5000 UNITS/ML 1ML VIAL SC SCH ×2 (09:04→22:39)
[2020-03-21] MEDS: cefTRIAXone 1GM/50ML D5W 50 ML IV SCH (09:12)
[2020-03-21] MEDS: ZINC SULFATE 220mg CAP or TAB PO SCH (09:13)
[2020-03-21] MEDS: FAMOTIDINE 20 MG TAB PO SCH (09:13)
[2020-03-21] MEDS: ASCORBIC ACID 500 MG TAB PO SCH ×2 (09:14→22:00)
[2020-03-21] MEDS: MULTIPLE VITAMIN TAB PO SCH (09:14)
[2020-03-21] MEDS: hydrALAZINE HCL 25 MG TAB PO PRN ×2 (09:16→22:25)
[2020-03-21] MEDS: MORPHINE SULFATE 4 MG/ML SYR/VIAL IV PRN ×3 (12:49→22:01)
[2020-03-21 13:00] VITALS: BP 178/109
[2020-03-21] MEDS ORDERED: AMIODARONE HCL 200 MG TAB PO ONE (16:00)
[2020-03-21 17:00] VITALS: BP 154/91
[2020-03-21] MEDS ORDERED: VANCOMYCIN 1GM/250ML 250 ML IV SCH (18:00)
[2020-03-21 22:00] VITALS: BP 166/64
[2020-03-22 05:00] VITALS: BP 147/84
[2020-03-22 06:23] LABS: Basophils # (auto) 0 10 ^3/uL (0-0.2); Basophils % (auto) 0.8 % (0.0-2.0); Eosinophils # (auto) 0.2 10 ^3/uL (0-0.8); Hemoglobin 12.3 g/dL (13.5-17.5); Lymphocytes # (auto) 1.1 10 ^3/uL (0.4-5.4); Lymphocytes % (auto) 17.6 % (10.0-50.0); Mean Corpuscular Hemoglobin 30.6 pg (28.0-32.0); Mean Corpuscular Hgb Conc. 33.2 g/dL (32.0-36.0); Monocytes # (auto) 0.8 10 ^3/uL (0-1.3); Monocytes % (auto) 13.5 % (0.0-12.0); Neutrophils % (auto) 65.1 % (37.0-80.0); Platelet Count (auto) 164 10^3/uL (140-450); Red Blood Cells 4.02 10^6/uL (4.5-5.90); Red Cell Distribution Width 14.6 % (11.8-14.3); White Blood Cell 6.2 10^3/uL (4.4-10.8)
[2020-03-22 06:30] LABS: Potassium 4.4 mmol/L (3.5-5.1)
[2020-03-22] MEDS: SODIUM CHLOR 0.9% PF (SALINE LOCK) 10ML VIAL/SYR IV SCH ×3 (06:30→14:10)
[2020-03-22 06:35] LABS: BUN/Creatinine Ratio 17.7
[2020-03-22] MEDS: InsuLIN REG 1unit/0.01ml Soln (100units/ml) SC SCH ×3 (06:48→17:00)
[2020-03-22] MEDS: ACCU-CHEK COMFORT CURVE STRIP VI SCH ×3 (07:01→17:00)
[2020-03-22] MEDS: MORPHINE SULFATE 4 MG/ML SYR/VIAL IV PRN ×2 (07:42→14:10)
[2020-03-22 09:00] VITALS: BP 155/86
[2020-03-22] MEDS ORDERED: AMIODARONE HCL 200 MG TAB PO SCH (10:00)
[2020-03-22] MEDS ORDERED: FAMOTIDINE 20 MG TAB PO SCH (10:00)
[2020-03-22] MEDS: ASCORBIC ACID 500 MG TAB PO SCH (10:14)
[2020-03-22] MEDS: FAMOTIDINE 20 MG TAB PO SCH (10:14)
[2020-03-22] MEDS: MULTIPLE VITAMIN TAB PO SCH (10:14)
[2020-03-22] MEDS: ZINC SULFATE 220mg CAP or TAB PO SCH (10:14)
[2020-03-22] MEDS: HEPARIN SODIUM (PORCINE) 5000 UNITS/ML 1ML VIAL SC SCH (10:30)
[2020-03-22 13:00] VITALS: BP 121/64
[2020-03-22] MEDS ORDERED: VANCOMYCIN 1GM/250ML 250 ML IV SCH (14:00)
[2020-03-22 17:00] VITALS: BP 147/81
[2020-03-22 17:29] VITALS: BP 121/64
[2020-03-22] MEDS: HYDROcodone-ACET 5/325MG TAB PO PRN (18:50)
[2020-03-22 22:00] VITALS: BP 144/80
[2020-03-22] MEDS ORDERED: LINEZOLID 600MG/300ML 300 ML IV SCH (22:00)
== END 2020-03-22 22:21 | DRG 314 ==
LOC: ER 21:34 → TELE 21:35 → TELE-EAST 03-15 08:38 → TELE-CENTR 03-19 20:55
PROVIDERS: ADMIT Nurse Practitioner Family; ATTEND Internal Medicine
PROC: 02HV33Z Insertion of Infusion Device into Superior Vena Cava, Percutaneous Approach (ICD-10-PCS; 2020-03-17)
PROC: 02HV33Z Insertion of Infusion Device into Superior Vena Cava, Percutaneous Approach (ICD-10-PCS; principal; 2020-03-19)
PROC: 0QBP0ZZ Excision of Left Metatarsal, Open Approach (ICD-10-PCS; 2020-03-20)
PROC: 0HBNXZZ Excision of Left Foot Skin, External Approach (ICD-10-PCS; 2020-03-20)
DX: T87.44 Infection of amputation stump, left lower extremity (principal); T87.81 Dehiscence of amputation stump; E11.69 Type 2 diabetes mellitus with other specified complication; M86.172 Other acute osteomyelitis, left ankle and foot; E11.621 Type 2 diabetes mellitus with foot ulcer; E11.65 Type 2 diabetes mellitus with hyperglycemia; E11.628 Type 2 diabetes mellitus with other skin complications; E11.22 Type 2 diabetes mellitus with diabetic chronic kidney disease; N18.32 Chronic kidney disease, stage 3b; Z20.822 Contact with and (suspected) exposure to COVID-19; E78.5 Hyperlipidemia, unspecified; L03.032 Cellulitis of left toe; I12.9 Hypertensive chronic kidney disease with stage 1 through stage 4 chronic kidney disease, or unspecified chronic kidney disease; Z89.429 Acquired absence of other toe(s), unspecified side; B95.62 Methicillin resistant Staphylococcus aureus infection as the cause of diseases classified elsewhere; Z53.20 Procedure and treatment not carried out because of patient's decision for unspecified reasons; Z86.73 Personal history of transient ischemic attack (TIA), and cerebral infarction without residual deficits; Z79.4 Long term (current) use of insulin
CPT/HCPCS: 36415; 36569; 71045; 73630; 73700; 80048; 80053; 80202; 81001; 82306; 82962; 83036; 83735; 84100; 84443; 85025; 85610; 85652; 85730; 86141; 87040; 87070; 87075; 87077; 87081; 87186; 87205; 87426; 93005; 96365; 96375; 96376; G0378; J0690; J0696; J1815; J2001; J2250; J2405; J2704; J3490